=== PATIENT | male | born 1965 | race African-American/Black ===

== ENCOUNTER 2022-09-29 13:54 | Inpatient (IN) | payer OTHER ==
[2022-09-29 14:30] VITALS: BMI 20.6
[2022-09-29] MEDS ORDERED: BISMUTH SUBSALICYLATE 262 MG/15 ML BTL PO PRN (15:41)
[2022-09-29] MEDS ORDERED: IBUPROFEN 600 MG TABLET (FP) PO PRN (15:41)
[2022-09-29] MEDS ORDERED: NALOXONE HCL (KLOXXADO) 8 MG SPRAY NS PRN (15:41)
[2022-09-29] MEDS ORDERED: MAG HYDROX/AL HYDROX/SIMETH 30 ML UNIT-DOSE CUP PO PRN (15:41)
[2022-09-29] MEDS ORDERED: ACETAMINOPHEN 325 MG TABLET (FP) PO PRN ×2 (15:41)
[2022-09-29] MEDS ORDERED: DICYCLOMINE HCL 10 MG CAPSULE PO PRN (15:41)
[2022-09-29] MEDS ORDERED: MAGNESIUM HYDROX 2400MG/30ML ORAL SUSPENSION 30 ML CUP PO PRN (15:41)
[2022-09-29] MEDS ORDERED: IBUPROFEN 400 MG TABLET (FP) PO PRN (15:41)
[2022-09-29] MEDS ORDERED: ONDANSETRON *ODT* 4 MG TABLET SL PRN (15:41)
[2022-09-29] MEDS ORDERED: BENZOCAINE/MENTHOL (CHLORASEPTIC ) LOZENGE MM PRN (15:41)
[2022-09-29] MEDS ORDERED: LOPERAMIDE HCL 2 MG CAPSULE PO PRN (15:41)
[2022-09-29] MEDS ORDERED: METHOCARBAMOL 500 MG TABLET PO PRN (15:41)
[2022-09-29] MEDS ORDERED: POLYETHYLENE GLYCOL (HEALTHYLAX) 3350 17 GM PACKET PO PRN (15:41)
[2022-09-29] MEDS: diazePAM 5 MG TABLET PO SCH ×2 (17:22→22:19)
[2022-09-29] MEDS: NICOTINE 21 MG/24 HOURS TOPICAL PATCH TD SCH (17:24)
[2022-09-29] MEDS: PRENATAL VITAMINS W/ FOLIC ACID TABLET (FP) PO SCH (17:24)
[2022-09-29] MEDS: MELATONIN 5 MG TABLETS PO SCH (22:18)
[2022-09-29] MEDS: THIAMINE HCL 100 MG TABLET (FP) PO SCH (22:18)
[2022-09-30] MEDS: diazePAM 5 MG TABLET PO SCH ×4 (05:59→22:28)
[2022-09-30] MEDS ORDERED: methaDONE HCL 10 MG TABLET PO SCH (08:45)
[2022-09-30] MEDS: methaDONE 80 MG, methaDONE 20 MG PO SCH (09:17)
[2022-09-30] MEDS: NICOTINE 10 MG CARTRIDGE (INHALER) IH PRN (09:21)
[2022-09-30] MEDS: NICOTINE 21 MG/24 HOURS TOPICAL PATCH TD SCH (10:25)
[2022-09-30] MEDS: PRENATAL VITAMINS W/ FOLIC ACID TABLET (FP) PO SCH (10:25)
[2022-09-30 11:30] LABS: HEMATOCRIT 36.3 % (35.4-49); MCH 32.1 pg (25.7-33.7); MEAN CELL VOLUME 97.3 fl (80-96); MEAN PLT VOLUME 9.1 fl (7.5-11.1); PLATELET COUNT 205 10^3/uL (134-434); RBC 3.73 M/mm3 (4.00-5.60); RDW 13.2 % (11.9-15.9); WHITE BLOOD COUNT 2.5 K/mm3 (4.0-10.0)
[2022-09-30 11:44] LABS: CALCIUM 8.7 mg/dL (8.5-10.1)
[2022-09-30 11:45] LABS: ALBUMIN 2.8 g/dl (3.4-5.0); BLOOD UREA NITROGEN 15.1 mg/dL (7-18)
[2022-09-30 11:48] LABS: CREATININE 0.8 mg/dL (0.55-1.3)
[2022-09-30 11:49] LABS: TOT PROT 7.6 g/dl (6.4-8.2)
[2022-09-30 11:50] LABS: BILIRUBIN,TOTAL 0.2 mg/dL (0.2-1)
[2022-09-30] MEDS: THIAMINE HCL 100 MG TABLET (FP) PO SCH (22:28)
[2022-09-30] MEDS: MELATONIN 5 MG TABLETS PO SCH (22:28)
[2022-10-01] MEDS: diazePAM 5 MG TABLET PO SCH ×3 (05:13→22:08)
[2022-10-01] MEDS: methaDONE 80 MG, methaDONE 20 MG PO SCH (05:13)
[2022-10-01] MEDS: NICOTINE 21 MG/24 HOURS TOPICAL PATCH TD SCH (10:10)
[2022-10-01] MEDS: PRENATAL VITAMINS W/ FOLIC ACID TABLET (FP) PO SCH (10:10)
[2022-10-01] MEDS: THIAMINE HCL 100 MG TABLET (FP) PO SCH (22:07)
[2022-10-01] MEDS: MELATONIN 5 MG TABLETS PO SCH (22:08)
[2022-10-02] MEDS: methaDONE 80 MG, methaDONE 20 MG PO SCH (05:11)
[2022-10-02] MEDS: diazePAM 5 MG TABLET PO SCH ×2 (05:11→17:32)
[2022-10-02] MEDS: PRENATAL VITAMINS W/ FOLIC ACID TABLET (FP) PO SCH (10:35)
[2022-10-02] MEDS: NICOTINE 10 MG CARTRIDGE (INHALER) IH PRN ×2 (10:38→21:05)
[2022-10-02] MEDS: NICOTINE 21 MG/24 HOURS TOPICAL PATCH TD SCH (10:40)
[2022-10-02 21:51] VITALS: PULSE 60
[2022-10-02] MEDS: MELATONIN 5 MG TABLETS PO SCH (22:08)
[2022-10-02] MEDS: THIAMINE HCL 100 MG TABLET (FP) PO SCH (22:08)
[2022-10-03] MEDS: methaDONE 80 MG, methaDONE 20 MG PO SCH (05:06)
[2022-10-03] MEDS ORDERED: diazePAM 5 MG TABLET PO ONE (06:00)
[2022-10-03 09:29] VITALS: BP 100/63; RESP 16; TEMP 97.3
[2022-10-03] MEDS: PRENATAL VITAMINS W/ FOLIC ACID TABLET (FP) PO SCH (11:00)
[2022-10-03] MEDS: NICOTINE 21 MG/24 HOURS TOPICAL PATCH TD SCH (11:00)
[2022-10-04] MEDS: methaDONE 80 MG, methaDONE 20 MG PO SCH (06:28)
== END 2022-10-03 11:27 | disposition other institution (70) | DRG 773 ==
LOC: YASAS 13:54 → SUATTDRO 13:54 → Y3N 16:19
PROVIDERS: ADMIT Allergy & Immunology; ATTEND Family Medicine
PROC: HZ2ZZZZ Detoxification Services for Substance Abuse Treatment (ICD-10-PCS; principal; 2022-09-29)
DX: F13.230 Sedative, hypnotic or anxiolytic dependence with withdrawal, uncomplicated (principal); F11.20 Opioid dependence, uncomplicated; F14.20 Cocaine dependence, uncomplicated; F12.20 Cannabis dependence, uncomplicated; F17.210 Nicotine dependence, cigarettes, uncomplicated; F19.24 Other psychoactive substance dependence with psychoactive substance-induced mood disorder; F41.9 Anxiety disorder, unspecified; F32.A Depression, unspecified; Z28.310 Unvaccinated for COVID-19; Z28.9 Immunization not carried out for unspecified reason; Z88.8 Allergy status to other drugs, medicaments and biological substances
CPT/HCPCS: 36415; 80053; 85027; 86780; 87811; C9803-CS; U0003; U0005

== ENCOUNTER 2022-10-03 11:33 | Inpatient (IN) | payer OTHER ==
[2022-10-03] MEDS ORDERED: POLYETHYLENE GLYCOL (HEALTHYLAX) 3350 17 GM PACKET PO PRN (12:19)
[2022-10-03] MEDS ORDERED: P-EPHED 60MG/TRIPROLIDI 2.5MG TABLET PO PRN (12:19)
[2022-10-03] MEDS ORDERED: ACETAMINOPHEN 325 MG TABLET (FP) PO PRN (12:19)
[2022-10-03] MEDS ORDERED: hydrOXYzine PAMOATE 25 MG CAPSULE (FP) PO PRN (12:19)
[2022-10-03] MEDS ORDERED: IBUPROFEN 400 MG TABLET (FP) PO PRN (12:19)
[2022-10-03] MEDS ORDERED: MAGNESIUM HYDROX 2400MG/30ML ORAL SUSPENSION 30 ML CUP PO PRN (12:19)
[2022-10-03] MEDS ORDERED: LOPERAMIDE HCL 2 MG CAPSULE PO PRN (12:19)
[2022-10-03] MEDS ORDERED: guaiFENesin 200 MG/10 ML 10 ML UNIT-DOSE CUPS PO PRN (12:19)
[2022-10-03] MEDS ORDERED: BENZOCAINE/MENTHOL (CHLORASEPTIC ) LOZENGE MM PRN (12:19)
[2022-10-03] MEDS ORDERED: MAG HYDROX/AL HYDROX/SIMETH 30 ML UNIT-DOSE CUP PO PRN (12:19)
[2022-10-03] MEDS: MELATONIN 5 MG TABLETS PO SCH (21:28)
[2022-10-03] MEDS: THIAMINE HCL 100 MG TABLET (FP) PO SCH (21:28)
[2022-10-03] MEDS: NICOTINE 10 MG CARTRIDGE (INHALER) IH PRN (21:32)
[2022-10-04] MEDS ORDERED: methaDONE HCL 10 MG TABLET PO SCH (06:00)
[2022-10-04] MEDS: methaDONE 80 MG, methaDONE 20 MG PO SCH (06:30)
[2022-10-04] MEDS: PRENATAL VITAMINS W/ FOLIC ACID TABLET (FP) PO SCH (10:16)
[2022-10-04] MEDS: NICOTINE 7 MG/24 HOURS TOPICAL PATCH TD PRN (10:53)
[2022-10-04 11:08] LABS: INR 0.91 (0.83-1.09); PROTHROMBIN TIME (PATIENT) 10.4 SEC (9.7-13.0)
[2022-10-04] MEDS: NICOTINE 10 MG CARTRIDGE (INHALER) IH PRN (16:41)
[2022-10-04] MEDS: THIAMINE HCL 100 MG TABLET (FP) PO SCH (21:51)
[2022-10-04] MEDS: MELATONIN 5 MG TABLETS PO SCH (21:51)
[2022-10-05] MEDS: methaDONE 80 MG, methaDONE 20 MG PO SCH (06:02)
[2022-10-05] MEDS: NICOTINE 10 MG CARTRIDGE (INHALER) IH PRN ×2 (07:25→21:15)
[2022-10-05] MEDS: PRENATAL VITAMINS W/ FOLIC ACID TABLET (FP) PO SCH (09:52)
[2022-10-05] MEDS: NICOTINE 7 MG/24 HOURS TOPICAL PATCH TD PRN (09:53)
[2022-10-05] MEDS: MELATONIN 5 MG TABLETS PO SCH (21:15)
[2022-10-05] MEDS: THIAMINE HCL 100 MG TABLET (FP) PO SCH (21:15)
[2022-10-06] MEDS: methaDONE 80 MG, methaDONE 20 MG PO SCH (06:14)
[2022-10-06] MEDS: NICOTINE 10 MG CARTRIDGE (INHALER) IH PRN (06:25)
[2022-10-06] MEDS ORDERED: NICOTINE 7 MG/24 HOURS TOPICAL PATCH TD PRN (08:53)
[2022-10-06] MEDS ORDERED: NICOTINE 14 MG/24 HOURS TOPICAL PATCH TD PRN (09:02)
[2022-10-06] MEDS: PRENATAL VITAMINS W/ FOLIC ACID TABLET (FP) PO SCH (10:19)
[2022-10-06] MEDS ORDERED: LACTULOSE 20 GM/30 ML UDC (FOR ORAL USE ONLY) PO PRN (16:46)
[2022-10-06] MEDS: THIAMINE HCL 100 MG TABLET (FP) PO SCH (21:53)
[2022-10-06] MEDS: MELATONIN 5 MG TABLETS PO SCH (21:53)
[2022-10-07] MEDS: methaDONE 80 MG, methaDONE 20 MG PO SCH (06:21)
[2022-10-07] MEDS: NICOTINE 10 MG CARTRIDGE (INHALER) IH PRN ×2 (06:22→22:31)
[2022-10-07] MEDS: TAMSULOSIN HCL 0.4 MG CAP PO SCH (09:11)
[2022-10-07] MEDS: PRENATAL VITAMINS W/ FOLIC ACID TABLET (FP) PO SCH (09:11)
[2022-10-07] MEDS: NICOTINE 21 MG/24 HOURS TOPICAL PATCH TD PRN (09:12)
[2022-10-07] MEDS: LACTULOSE 20 GM/30 ML UDC (FOR ORAL USE ONLY) PO SCH ×2 (13:32→21:06)
[2022-10-07] MEDS: THIAMINE HCL 100 MG TABLET (FP) PO SCH (21:06)
[2022-10-07] MEDS: MELATONIN 5 MG TABLETS PO SCH (21:06)
[2022-10-08] MEDS: methaDONE 80 MG, methaDONE 20 MG PO SCH (06:09)
[2022-10-08] MEDS: LACTULOSE 20 GM/30 ML UDC (FOR ORAL USE ONLY) PO SCH ×3 (06:09→21:18)
[2022-10-08] MEDS: NICOTINE 10 MG CARTRIDGE (INHALER) IH PRN (06:22)
[2022-10-08] MEDS: PRENATAL VITAMINS W/ FOLIC ACID TABLET (FP) PO SCH (09:47)
[2022-10-08] MEDS: NICOTINE 21 MG/24 HOURS TOPICAL PATCH TD PRN (09:47)
[2022-10-08] MEDS: TAMSULOSIN HCL 0.4 MG CAP PO SCH (09:47)
[2022-10-08] MEDS: MELATONIN 5 MG TABLETS PO SCH (21:18)
[2022-10-08] MEDS: THIAMINE HCL 100 MG TABLET (FP) PO SCH (21:18)
[2022-10-09] MEDS: NICOTINE 10 MG CARTRIDGE (INHALER) IH PRN (05:59)
[2022-10-09] MEDS: LACTULOSE 20 GM/30 ML UDC (FOR ORAL USE ONLY) PO SCH ×3 (06:00→21:05)
[2022-10-09] MEDS: methaDONE 80 MG, methaDONE 20 MG PO SCH (06:04)
[2022-10-09] MEDS ORDERED: LACTULOSE 20 GM/30 ML UDC (FOR ORAL USE ONLY) PO SCH (09:09)
[2022-10-09] MEDS: PRENATAL VITAMINS W/ FOLIC ACID TABLET (FP) PO SCH (09:29)
[2022-10-09] MEDS: TAMSULOSIN HCL 0.4 MG CAP PO SCH (09:29)
[2022-10-09] MEDS: NICOTINE 21 MG/24 HOURS TOPICAL PATCH TD PRN (09:56)
[2022-10-09] MEDS: THIAMINE HCL 100 MG TABLET (FP) PO SCH (21:05)
[2022-10-09] MEDS: MELATONIN 5 MG TABLETS PO SCH (21:05)
[2022-10-10] MEDS: NICOTINE 10 MG CARTRIDGE (INHALER) IH PRN ×3 (05:59→21:35)
[2022-10-10] MEDS: methaDONE 80 MG, methaDONE 20 MG PO SCH (05:59)
[2022-10-10] MEDS: TAMSULOSIN HCL 0.4 MG CAP PO SCH (09:21)
[2022-10-10] MEDS: LACTULOSE 20 GM/30 ML UDC (FOR ORAL USE ONLY) PO SCH ×3 (09:21→21:36)
[2022-10-10] MEDS: PRENATAL VITAMINS W/ FOLIC ACID TABLET (FP) PO SCH (09:23)
[2022-10-10] MEDS: THIAMINE HCL 100 MG TABLET (FP) PO SCH (21:36)
[2022-10-10] MEDS: MELATONIN 5 MG TABLETS PO SCH (21:36)
[2022-10-11] MEDS: methaDONE 80 MG, methaDONE 20 MG PO SCH (06:12)
[2022-10-11] MEDS: NICOTINE 10 MG CARTRIDGE (INHALER) IH PRN ×4 (09:09→22:12)
[2022-10-11] MEDS: TAMSULOSIN HCL 0.4 MG CAP PO SCH (09:09)
[2022-10-11] MEDS: LACTULOSE 20 GM/30 ML UDC (FOR ORAL USE ONLY) PO SCH ×3 (09:10→22:11)
[2022-10-11] MEDS: PRENATAL VITAMINS W/ FOLIC ACID TABLET (FP) PO SCH (09:11)
[2022-10-11] MEDS: THIAMINE HCL 100 MG TABLET (FP) PO SCH (22:10)
[2022-10-11] MEDS: MELATONIN 5 MG TABLETS PO SCH (22:10)
[2022-10-12] MEDS: methaDONE 80 MG, methaDONE 20 MG PO SCH (06:14)
[2022-10-12] MEDS: TAMSULOSIN HCL 0.4 MG CAP PO SCH (08:56)
[2022-10-12] MEDS: LACTULOSE 20 GM/30 ML UDC (FOR ORAL USE ONLY) PO SCH ×3 (08:56→21:25)
[2022-10-12] MEDS: NICOTINE 10 MG CARTRIDGE (INHALER) IH PRN ×3 (09:33→21:25)
[2022-10-12] MEDS: PRENATAL VITAMINS W/ FOLIC ACID TABLET (FP) PO SCH (09:33)
[2022-10-12] MEDS: THIAMINE HCL 100 MG TABLET (FP) PO SCH (21:25)
[2022-10-12] MEDS: MELATONIN 5 MG TABLETS PO SCH (21:25)
[2022-10-13] MEDS: methaDONE 80 MG, methaDONE 20 MG PO SCH (06:21)
[2022-10-13] MEDS: TAMSULOSIN HCL 0.4 MG CAP PO SCH (09:30)
[2022-10-13] MEDS: LACTULOSE 20 GM/30 ML UDC (FOR ORAL USE ONLY) PO SCH ×3 (09:46→21:15)
[2022-10-13] MEDS: PRENATAL VITAMINS W/ FOLIC ACID TABLET (FP) PO SCH (09:47)
[2022-10-13] MEDS: NICOTINE 10 MG CARTRIDGE (INHALER) IH PRN ×2 (14:18→21:16)
[2022-10-13] MEDS: THIAMINE HCL 100 MG TABLET (FP) PO SCH (21:15)
[2022-10-13] MEDS: MELATONIN 5 MG TABLETS PO SCH (21:15)
[2022-10-14] MEDS: methaDONE 80 MG, methaDONE 20 MG PO SCH (06:49)
[2022-10-14] MEDS: TAMSULOSIN HCL 0.4 MG CAP PO SCH (09:30)
[2022-10-14] MEDS: LACTULOSE 20 GM/30 ML UDC (FOR ORAL USE ONLY) PO SCH ×3 (09:30→21:00)
[2022-10-14] MEDS: PRENATAL VITAMINS W/ FOLIC ACID TABLET (FP) PO SCH (09:30)
[2022-10-14] MEDS: NICOTINE 10 MG CARTRIDGE (INHALER) IH PRN ×2 (10:14→20:57)
[2022-10-14] MEDS: THIAMINE HCL 100 MG TABLET (FP) PO SCH (21:00)
[2022-10-14] MEDS: MELATONIN 5 MG TABLETS PO SCH (21:00)
[2022-10-15] MEDS: methaDONE 80 MG, methaDONE 20 MG PO SCH (06:03)
[2022-10-15] MEDS: TAMSULOSIN HCL 0.4 MG CAP PO SCH (09:30)
[2022-10-15] MEDS: PRENATAL VITAMINS W/ FOLIC ACID TABLET (FP) PO SCH (09:43)
[2022-10-15] MEDS: LACTULOSE 20 GM/30 ML UDC (FOR ORAL USE ONLY) PO SCH ×3 (09:43→21:02)
[2022-10-15] MEDS: NICOTINE 10 MG CARTRIDGE (INHALER) IH PRN ×3 (09:43→21:03)
[2022-10-15] MEDS: MELATONIN 5 MG TABLETS PO SCH (21:02)
[2022-10-15] MEDS: THIAMINE HCL 100 MG TABLET (FP) PO SCH (21:02)
[2022-10-16] MEDS: methaDONE 80 MG, methaDONE 20 MG PO SCH (05:53)
[2022-10-16] MEDS: PRENATAL VITAMINS W/ FOLIC ACID TABLET (FP) PO SCH (09:38)
[2022-10-16] MEDS: TAMSULOSIN HCL 0.4 MG CAP PO SCH (09:38)
[2022-10-16] MEDS: LACTULOSE 20 GM/30 ML UDC (FOR ORAL USE ONLY) PO SCH ×3 (09:39→21:07)
[2022-10-16] MEDS: NICOTINE 10 MG CARTRIDGE (INHALER) IH PRN ×2 (10:16→18:38)
[2022-10-16] MEDS: THIAMINE HCL 100 MG TABLET (FP) PO SCH (21:07)
[2022-10-16] MEDS: MELATONIN 5 MG TABLETS PO SCH (21:07)
[2022-10-17] MEDS: methaDONE 80 MG, methaDONE 20 MG PO SCH (05:36)
[2022-10-17] MEDS: PRENATAL VITAMINS W/ FOLIC ACID TABLET (FP) PO SCH (09:40)
[2022-10-17] MEDS: TAMSULOSIN HCL 0.4 MG CAP PO SCH (09:41)
[2022-10-17] MEDS: LACTULOSE 20 GM/30 ML UDC (FOR ORAL USE ONLY) PO SCH ×3 (09:41→21:19)
[2022-10-17] MEDS: NICOTINE 10 MG CARTRIDGE (INHALER) IH PRN ×2 (18:16→21:19)
[2022-10-17] MEDS: MELATONIN 5 MG TABLETS PO SCH (21:18)
[2022-10-17] MEDS: THIAMINE HCL 100 MG TABLET (FP) PO SCH (21:18)
[2022-10-18] MEDS: methaDONE 80 MG, methaDONE 20 MG PO SCH (05:55)
[2022-10-18] MEDS: LACTULOSE 20 GM/30 ML UDC (FOR ORAL USE ONLY) PO SCH ×3 (09:45→21:11)
[2022-10-18] MEDS: TAMSULOSIN HCL 0.4 MG CAP PO SCH (09:45)
[2022-10-18] MEDS: PRENATAL VITAMINS W/ FOLIC ACID TABLET (FP) PO SCH (09:45)
[2022-10-18] MEDS: MELATONIN 5 MG TABLETS PO SCH (21:11)
[2022-10-18] MEDS: THIAMINE HCL 100 MG TABLET (FP) PO SCH (21:11)
[2022-10-19] MEDS: methaDONE 80 MG, methaDONE 20 MG PO SCH (06:03)
[2022-10-19] MEDS: PRENATAL VITAMINS W/ FOLIC ACID TABLET (FP) PO SCH (09:37)
[2022-10-19] MEDS: TAMSULOSIN HCL 0.4 MG CAP PO SCH (09:37)
[2022-10-19] MEDS: LACTULOSE 20 GM/30 ML UDC (FOR ORAL USE ONLY) PO SCH ×3 (09:38→21:31)
[2022-10-19] MEDS: MELATONIN 5 MG TABLETS PO SCH (21:31)
[2022-10-19] MEDS: THIAMINE HCL 100 MG TABLET (FP) PO SCH (21:31)
[2022-10-20] MEDS: methaDONE 80 MG, methaDONE 20 MG PO SCH (05:51)
[2022-10-20] MEDS: TAMSULOSIN HCL 0.4 MG CAP PO SCH (09:59)
[2022-10-20] MEDS: PRENATAL VITAMINS W/ FOLIC ACID TABLET (FP) PO SCH (09:59)
[2022-10-20] MEDS: LACTULOSE 20 GM/30 ML UDC (FOR ORAL USE ONLY) PO SCH ×3 (09:59→21:22)
[2022-10-20] MEDS: MELATONIN 5 MG TABLETS PO SCH (21:21)
[2022-10-20] MEDS: THIAMINE HCL 100 MG TABLET (FP) PO SCH (21:21)
[2022-10-21] MEDS: methaDONE 80 MG, methaDONE 20 MG PO SCH (06:13)
[2022-10-21] MEDS: TAMSULOSIN HCL 0.4 MG CAP PO SCH (09:14)
[2022-10-21] MEDS: LACTULOSE 20 GM/30 ML UDC (FOR ORAL USE ONLY) PO SCH ×3 (09:14→21:46)
[2022-10-21] MEDS: PRENATAL VITAMINS W/ FOLIC ACID TABLET (FP) PO SCH (09:14)
[2022-10-21] MEDS: MELATONIN 5 MG TABLETS PO SCH (21:45)
[2022-10-21] MEDS: THIAMINE HCL 100 MG TABLET (FP) PO SCH (21:45)
[2022-10-21] MEDS: NICOTINE 10 MG CARTRIDGE (INHALER) IH PRN (21:46)
[2022-10-22] MEDS: methaDONE 80 MG, methaDONE 20 MG PO SCH (06:28)
[2022-10-22] MEDS: PRENATAL VITAMINS W/ FOLIC ACID TABLET (FP) PO SCH (09:56)
[2022-10-22] MEDS: LACTULOSE 20 GM/30 ML UDC (FOR ORAL USE ONLY) PO SCH ×3 (09:56→21:11)
[2022-10-22] MEDS: TAMSULOSIN HCL 0.4 MG CAP PO SCH (09:56)
[2022-10-22] MEDS: NICOTINE 21 MG/24 HOURS TOPICAL PATCH TD PRN (14:15)
[2022-10-22] MEDS: MELATONIN 5 MG TABLETS PO SCH (21:11)
[2022-10-22] MEDS: THIAMINE HCL 100 MG TABLET (FP) PO SCH (21:11)
[2022-10-23] MEDS: methaDONE 80 MG, methaDONE 20 MG PO SCH (06:03)
[2022-10-23] MEDS: LACTULOSE 20 GM/30 ML UDC (FOR ORAL USE ONLY) PO SCH ×3 (10:00→21:59)
[2022-10-23] MEDS: TAMSULOSIN HCL 0.4 MG CAP PO SCH (10:00)
[2022-10-23] MEDS: PRENATAL VITAMINS W/ FOLIC ACID TABLET (FP) PO SCH (10:30)
[2022-10-23] MEDS: MELATONIN 5 MG TABLETS PO SCH (21:59)
[2022-10-23] MEDS: THIAMINE HCL 100 MG TABLET (FP) PO SCH (22:00)
[2022-10-24] MEDS: methaDONE 80 MG, methaDONE 20 MG PO SCH (05:51)
[2022-10-24] MEDS: PRENATAL VITAMINS W/ FOLIC ACID TABLET (FP) PO SCH (09:31)
[2022-10-24] MEDS: LACTULOSE 20 GM/30 ML UDC (FOR ORAL USE ONLY) PO SCH ×3 (09:31→21:09)
[2022-10-24] MEDS: TAMSULOSIN HCL 0.4 MG CAP PO SCH (09:31)
[2022-10-24] MEDS: MELATONIN 5 MG TABLETS PO SCH (21:09)
[2022-10-24] MEDS: NICOTINE 10 MG CARTRIDGE (INHALER) IH PRN (21:09)
[2022-10-24] MEDS: THIAMINE HCL 100 MG TABLET (FP) PO SCH (21:09)
[2022-10-25] MEDS: methaDONE 80 MG, methaDONE 20 MG PO SCH (05:46)
[2022-10-25] MEDS: TAMSULOSIN HCL 0.4 MG CAP PO SCH (09:11)
[2022-10-25] MEDS: LACTULOSE 20 GM/30 ML UDC (FOR ORAL USE ONLY) PO SCH ×3 (10:29→21:02)
[2022-10-25] MEDS: PRENATAL VITAMINS W/ FOLIC ACID TABLET (FP) PO SCH (10:29)
[2022-10-25] MEDS: NICOTINE 21 MG/24 HOURS TOPICAL PATCH TD PRN (10:30)
[2022-10-25] MEDS ORDERED: TOLNAFTATE 1% CREAM 15 GM TUBE TP PRN (11:54)
[2022-10-25] MEDS: NICOTINE 10 MG CARTRIDGE (INHALER) IH PRN (18:54)
[2022-10-25] MEDS: THIAMINE HCL 100 MG TABLET (FP) PO SCH (21:02)
[2022-10-25] MEDS: MELATONIN 5 MG TABLETS PO SCH (21:02)
[2022-10-26] MEDS: methaDONE 80 MG, methaDONE 20 MG PO SCH (05:47)
[2022-10-26] MEDS: TAMSULOSIN HCL 0.4 MG CAP PO SCH (09:14)
[2022-10-26] MEDS: PRENATAL VITAMINS W/ FOLIC ACID TABLET (FP) PO SCH (09:14)
[2022-10-26] MEDS: LACTULOSE 20 GM/30 ML UDC (FOR ORAL USE ONLY) PO SCH ×3 (09:14→21:03)
[2022-10-26] MEDS: MELATONIN 5 MG TABLETS PO SCH (21:02)
[2022-10-26] MEDS: THIAMINE HCL 100 MG TABLET (FP) PO SCH (21:02)
[2022-10-27] MEDS: methaDONE 80 MG, methaDONE 20 MG PO SCH (06:12)
[2022-10-27] MEDS: TAMSULOSIN HCL 0.4 MG CAP PO SCH (09:31)
[2022-10-27] MEDS: NICOTINE 10 MG CARTRIDGE (INHALER) IH PRN ×2 (09:32→19:00)
[2022-10-27] MEDS: LACTULOSE 20 GM/30 ML UDC (FOR ORAL USE ONLY) PO SCH ×4 (09:32→21:34)
[2022-10-27] MEDS: PRENATAL VITAMINS W/ FOLIC ACID TABLET (FP) PO SCH (09:32)
[2022-10-27] MEDS: MELATONIN 5 MG TABLETS PO SCH (21:34)
[2022-10-27] MEDS: THIAMINE HCL 100 MG TABLET (FP) PO SCH (21:34)
[2022-10-28] MEDS: methaDONE 80 MG, methaDONE 20 MG PO SCH (05:48)
[2022-10-28] MEDS: LACTULOSE 20 GM/30 ML UDC (FOR ORAL USE ONLY) PO SCH ×3 (10:16→21:40)
[2022-10-28] MEDS: PRENATAL VITAMINS W/ FOLIC ACID TABLET (FP) PO SCH (10:16)
[2022-10-28] MEDS: TAMSULOSIN HCL 0.4 MG CAP PO SCH (10:16)
[2022-10-28] MEDS: NICOTINE 10 MG CARTRIDGE (INHALER) IH PRN (19:05)
[2022-10-28] MEDS: MELATONIN 5 MG TABLETS PO SCH (21:40)
[2022-10-28] MEDS: THIAMINE HCL 100 MG TABLET (FP) PO SCH (21:40)
[2022-10-29] MEDS: methaDONE 80 MG, methaDONE 20 MG PO SCH (05:43)
[2022-10-29] MEDS: PRENATAL VITAMINS W/ FOLIC ACID TABLET (FP) PO SCH (09:35)
[2022-10-29] MEDS: TAMSULOSIN HCL 0.4 MG CAP PO SCH (09:35)
[2022-10-29] MEDS: LACTULOSE 20 GM/30 ML UDC (FOR ORAL USE ONLY) PO SCH ×3 (09:35→21:33)
[2022-10-29] MEDS: MELATONIN 5 MG TABLETS PO SCH (21:33)
[2022-10-29] MEDS: THIAMINE HCL 100 MG TABLET (FP) PO SCH (21:33)
[2022-10-30] MEDS: methaDONE 80 MG, methaDONE 20 MG PO SCH (05:45)
[2022-10-30] MEDS: TAMSULOSIN HCL 0.4 MG CAP PO SCH (09:02)
[2022-10-30] MEDS: PRENATAL VITAMINS W/ FOLIC ACID TABLET (FP) PO SCH (09:02)
[2022-10-30] MEDS: LACTULOSE 20 GM/30 ML UDC (FOR ORAL USE ONLY) PO SCH ×3 (09:02→21:03)
[2022-10-30] MEDS: NICOTINE 21 MG/24 HOURS TOPICAL PATCH TD PRN (10:57)
[2022-10-30] MEDS: THIAMINE HCL 100 MG TABLET (FP) PO SCH (21:02)
[2022-10-30] MEDS: MELATONIN 5 MG TABLETS PO SCH (21:02)
[2022-10-31] MEDS ORDERED: methaDONE 80 MG, methaDONE 20 MG PO SCH (06:00)
[2022-10-31 06:32] VITALS: BP 123/75; PULSE 73; RESP 18; TEMP 97.8
== END 2022-10-31 09:55 | disposition home or self-care (01) | DRG 772 ==
LOC: YASAS 11:33 → Y3W 11:37
PROVIDERS: ADMIT Allergy & Immunology; ATTEND Allergy & Immunology
PROC: HZ42ZZZ Group Counseling for Substance Abuse Treatment, Cognitive-Behavioral (ICD-10-PCS; principal; 2022-10-03)
DX: F11.20 Opioid dependence, uncomplicated (principal); F13.20 Sedative, hypnotic or anxiolytic dependence, uncomplicated; F14.20 Cocaine dependence, uncomplicated; F12.20 Cannabis dependence, uncomplicated; F17.210 Nicotine dependence, cigarettes, uncomplicated; F19.24 Other psychoactive substance dependence with psychoactive substance-induced mood disorder; F41.8 Other specified anxiety disorders; E72.20 Disorder of urea cycle metabolism, unspecified; I10 Essential (primary) hypertension; R74.8 Abnormal levels of other serum enzymes; Z88.8 Allergy status to other drugs, medicaments and biological substances
CPT/HCPCS: 36415; 82140; 85610; 86803; 87522; 93005; 93010

== ENCOUNTER 2023-06-03 14:09 | Inpatient (IN) | payer OTHER ==
[2023-06-03] MEDS ORDERED: VANCOMYCIN HCL 1,500 MG in DEXTROSE 5%-WATER - 500 ML IVPB ONE ×2 (15:08→18:24)
[2023-06-03] MEDS ORDERED: PIPERACILLIN/TAZOB 4.5 GM 4.5 GM in DEXTROSE 5%-WATER 100 ML IVPB ONE ×2 (15:08→18:24)
[2023-06-03 16:11] LABS: BASO % 0.6 % (0-2.0); EOS % 4.7 % (0-4.5); HEMATOCRIT 33.2 % (35.4-49); HEMOGLOBIN 11.4 GM/dL (11.7-16.9); LYMPH % 46.1 % (8-40); MCH 32.5 pg (25.7-33.7); MCHC 34.5 g/dl (32.0-35.9); MEAN CELL VOLUME 94.4 fl (80-96); MEAN PLT VOLUME 7.7 fl (7.5-11.1); MONO % 21.4 % (3.8-10.2); NEUT % 27.2 % (42.8-82.8); PLATELET COUNT 225 10^3/uL (134-434); RBC 3.52 M/mm3 (4.00-5.60); RDW 13.6 % (11.9-15.9); WHITE BLOOD COUNT 2.3 K/mm3 (4.0-10.0)
[2023-06-03 16:21] LABS: POTASSIUM 3.7 mmol/L (3.5-5.1)
[2023-06-03 16:23] LABS: CALCIUM 8.4 mg/dL (8.5-10.1)
[2023-06-03 16:24] LABS: ALBUMIN 2.9 g/dl (3.4-5.0)
[2023-06-03 16:27] LABS: CREATININE 0.8 mg/dL (0.55-1.3)
[2023-06-03 16:28] LABS: TOT PROT 7.7 g/dl (6.4-8.2)
[2023-06-03 16:29] LABS: BILIRUBIN,TOTAL 0.2 mg/dL (0.2-1)
[2023-06-03 16:57] LABS: ERYTHROCYTE SEDIMENTATION RATE 51 mm/hr (0-20)
[2023-06-03 17:30] LABS: ANISOCYTOSIS 1+; MACROCYTOSIS 0
[2023-06-03] MEDS ORDERED: PIPERACILLIN/TAZOB 4.5 GM 4.5 GM/100 ML BAG IVPB ONE (18:26)
[2023-06-04] MEDS ORDERED: LORazepam 1 MG TABLET PO PRN (00:17)
[2023-06-04] MEDS ORDERED: FOLIC ACID INJECTION - 1 MG, THIAMINE HCL 100 MG, MULTIVIT INJECTION ADULT 10 ML in SOD... IVPB ONE (01:30)
[2023-06-04] MEDS: LORazepam 1 MG TABLET PO SCH ×4 (05:26→23:58)
[2023-06-04 07:29] LABS: HEMOGLOBIN 11.6 GM/dL (11.7-16.9); MCH 32.3 pg (25.7-33.7); MEAN CELL VOLUME 94.9 fl (80-96); MEAN PLT VOLUME 8.7 fl (7.5-11.1); PLATELET COUNT 185 10^3/uL (134-434); RBC 3.58 M/mm3 (4.00-5.60); WHITE BLOOD COUNT 3.3 K/mm3 (4.0-10.0)
[2023-06-04 07:42] LABS: CALCIUM 8.5 mg/dL (8.5-10.1)
[2023-06-04 07:43] LABS: ALBUMIN 2.9 g/dl (3.4-5.0); BLOOD UREA NITROGEN 9.1 mg/dL (7-18); MAGNESIUM 1.7 mg/dL (1.8-2.4)
[2023-06-04 07:46] LABS: CREATININE 0.8 mg/dL (0.55-1.3); PHOSPHOROUS 3.3 mg/dL (2.5-4.9)
[2023-06-04 07:47] LABS: BILIRUBIN,TOTAL 0.2 mg/dL (0.2-1); TOT PROT 7.8 g/dl (6.4-8.2)
[2023-06-04] MEDS ORDERED: methaDONE HCL 10 MG TABLET (FOR DETOX USE ONLY) PO ONE (08:45)
[2023-06-04] MEDS ORDERED: FOLIC ACID 1 MG TABLET (FP) ONE (08:55)
[2023-06-04] MEDS ORDERED: THIAMINE HCL 100 MG TABLET (FP) ONE (08:55)
[2023-06-04] MEDS ORDERED: NICOTINE 14 MG/24 HOURS TOPICAL PATCH TD ONE (08:55)
[2023-06-04] MEDS ORDERED: PIPERACILLIN/TAZOB 3.375 GM 3.375 GM in DEXTROSE 5%-WATER - 50 ML IVPB SCH ×2 (09:00→10:00)
[2023-06-04] MEDS: FOLIC ACID 1 MG TABLET (FP) PO SCH (09:02)
[2023-06-04] MEDS: THIAMINE HCL 100 MG TABLET (FP) PO SCH (09:02)
[2023-06-04] MEDS: NICOTINE 14 MG/24 HOURS TOPICAL PATCH TD SCH (09:02)
[2023-06-04] MEDS ORDERED: VANCOMYCIN 1,000 MG in DEXTROSE 5%-WATER - 250 ML IVPB SCH (10:00)
[2023-06-04] MEDS ORDERED: PIPERACILLIN/TAZOB 3.375 GM 3.375 GM/50 ML BAG IVPB ONE (10:20)
[2023-06-04] MEDS: PIPERACILLIN/TAZOB 3.375 GM 3.375 GM in DEXTROSE 5%-WATER - 50 ML IVPB SCH ×2 (10:45→19:34)
[2023-06-04] MEDS ORDERED: methaDONE 80 MG, methaDONE 20 MG PO ONE (10:50)
[2023-06-04] MEDS ORDERED: methaDONE HCL 40 MG DISPERSABLE TABLET ONE (11:18)
[2023-06-04] MEDS ORDERED: LORazepam 1 MG TABLET ONE (11:19)
[2023-06-04] MEDS ORDERED: methaDONE HCL 10 MG TABLET ONE (11:19)
[2023-06-04] MEDS ORDERED: VANCOMYCIN/WATER 1250 MG 1,250 MG/250 ML BAG IVPB ONE ×2 (17:02→17:20)
[2023-06-04 23:07] VITALS: BMI 23.4
[2023-06-05] MEDS: PIPERACILLIN/TAZOB 3.375 GM 3.375 GM in DEXTROSE 5%-WATER - 50 ML IVPB SCH ×3 (01:03→17:59)
[2023-06-05] MEDS: LORazepam 1 MG TABLET PO SCH ×4 (05:28→23:26)
[2023-06-05] MEDS: methaDONE 80 MG, methaDONE 20 MG PO SCH (09:14)
[2023-06-05] MEDS: NICOTINE 14 MG/24 HOURS TOPICAL PATCH TD SCH (09:15)
[2023-06-05] MEDS: FOLIC ACID 1 MG TABLET (FP) PO SCH (09:15)
[2023-06-05] MEDS: THIAMINE HCL 100 MG TABLET (FP) PO SCH (09:15)
[2023-06-05 09:47] LABS: BASO % 0.6 % (0-2.0); EOS % 5.6 % (0-4.5); HEMATOCRIT 36.2 % (35.4-49); HEMOGLOBIN 11.9 GM/dL (11.7-16.9); LYMPH % 54.2 % (8-40); MCH 31.7 pg (25.7-33.7); MCHC 32.9 g/dl (32.0-35.9); MEAN CELL VOLUME 96.3 fl (80-96); MEAN PLT VOLUME 8.2 fl (7.5-11.1); MONO % 12.5 % (3.8-10.2); NEUT % 27.1 % (42.8-82.8); PLATELET COUNT 236 10^3/uL (134-434); RBC 3.76 M/mm3 (4.00-5.60); RDW 13.6 % (11.9-15.9); WHITE BLOOD COUNT 3.6 K/mm3 (4.0-10.0)
[2023-06-05] MEDS ORDERED: methaDONE HCL 10 MG TABLET (FOR DETOX USE ONLY) PO SCH (10:00)
[2023-06-05 10:11] LABS: POTASSIUM 4.4 mmol/L (3.5-5.1)
[2023-06-05 10:14] LABS: BLOOD UREA NITROGEN 9.4 mg/dL (7-18)
[2023-06-05 10:17] LABS: CALCIUM 8.6 mg/dL (8.5-10.1); CREATININE 0.8 mg/dL (0.55-1.3); PHOSPHOROUS 4.2 mg/dL (2.5-4.9)
[2023-06-06] MEDS ORDERED: LORazepam 0.5 MG TABLET PO PRN
[2023-06-06] MEDS: PIPERACILLIN/TAZOB 3.375 GM 3.375 GM in DEXTROSE 5%-WATER - 50 ML IVPB SCH ×3 (02:08→17:17)
[2023-06-06] MEDS: LORazepam 0.5 MG TABLET PO SCH ×4 (05:05→22:09)
[2023-06-06] MEDS: methaDONE 80 MG, methaDONE 20 MG PO SCH (06:27)
[2023-06-06] MEDS: NICOTINE 14 MG/24 HOURS TOPICAL PATCH TD SCH (09:15)
[2023-06-06] MEDS: FOLIC ACID 1 MG TABLET (FP) PO SCH (09:15)
[2023-06-06] MEDS: THIAMINE HCL 100 MG TABLET (FP) PO SCH (09:15)
[2023-06-06 09:26] LABS: BASO % 0.7 % (0-2.0); EOS % 6.6 % (0-4.5); HEMATOCRIT 37.3 % (35.4-49); HEMOGLOBIN 12.6 GM/dL (11.7-16.9); LYMPH % 48.1 % (8-40); MCH 31.9 pg (25.7-33.7); MCHC 33.7 g/dl (32.0-35.9); MEAN CELL VOLUME 94.6 fl (80-96); MEAN PLT VOLUME 8.1 fl (7.5-11.1); MONO % 10.7 % (3.8-10.2); NEUT % 33.9 % (42.8-82.8); PLATELET COUNT 289 10^3/uL (134-434); RBC 3.95 M/mm3 (4.00-5.60); RDW 13.3 % (11.9-15.9); WHITE BLOOD COUNT 4.2 K/mm3 (4.0-10.0)
[2023-06-06 09:46] LABS: POTASSIUM 4.2 mmol/L (3.5-5.1)
[2023-06-06 09:48] LABS: BLOOD UREA NITROGEN 12.8 mg/dL (7-18)
[2023-06-06 09:49] LABS: ALBUMIN 3.2 g/dl (3.4-5.0); CALCIUM 9.1 mg/dL (8.5-10.1); MAGNESIUM 2.1 mg/dL (1.8-2.4)
[2023-06-06 09:51] LABS: CREATININE 0.9 mg/dL (0.55-1.3)
[2023-06-06 09:54] LABS: BILIRUBIN,TOTAL 0.3 mg/dL (0.2-1)
[2023-06-06 09:55] LABS: TOT PROT 8.6 g/dl (6.4-8.2)
[2023-06-07] MEDS: PIPERACILLIN/TAZOB 3.375 GM 3.375 GM in DEXTROSE 5%-WATER - 50 ML IVPB SCH ×3 (02:11→17:53)
[2023-06-07] MEDS ORDERED: LORazepam 0.5 MG TABLET PO ONE (05:00)
[2023-06-07] MEDS: methaDONE 80 MG, methaDONE 20 MG PO SCH (05:15)
[2023-06-07 09:33] LABS: BASO % 0.6 % (0-2.0); EOS % 6.3 % (0-4.5); HEMATOCRIT 38.7 % (35.4-49); HEMOGLOBIN 13.2 GM/dL (11.7-16.9); MCH 32.6 pg (25.7-33.7); MCHC 34.1 g/dl (32.0-35.9); MEAN CELL VOLUME 95.5 fl (80-96); MEAN PLT VOLUME 7.9 fl (7.5-11.1); MONO % 9.8 % (3.8-10.2); NEUT % 32.3 % (42.8-82.8); PLATELET COUNT 307 10^3/uL (134-434); RBC 4.06 M/mm3 (4.00-5.60); RDW 13.3 % (11.9-15.9)
[2023-06-07 09:49] LABS: POTASSIUM 4.9 mmol/L (3.5-5.1)
[2023-06-07 09:51] LABS: ALBUMIN 3.3 g/dl (3.4-5.0); BLOOD UREA NITROGEN 11.2 mg/dL (7-18); CALCIUM 9.1 mg/dL (8.5-10.1); MAGNESIUM 2.1 mg/dL (1.8-2.4)
[2023-06-07] MEDS: THIAMINE HCL 100 MG TABLET (FP) PO SCH (09:55)
[2023-06-07] MEDS: FOLIC ACID 1 MG TABLET (FP) PO SCH (09:55)
[2023-06-07] MEDS: NICOTINE 14 MG/24 HOURS TOPICAL PATCH TD SCH (09:55)
[2023-06-07 09:56] LABS: BILIRUBIN,TOTAL 0.3 mg/dL (0.2-1)
[2023-06-08] MEDS: PIPERACILLIN/TAZOB 3.375 GM 3.375 GM in DEXTROSE 5%-WATER - 50 ML IVPB SCH ×3 (01:58→17:57)
[2023-06-08] MEDS: methaDONE 80 MG, methaDONE 20 MG PO SCH (05:15)
[2023-06-08] MEDS: NICOTINE 14 MG/24 HOURS TOPICAL PATCH TD SCH (09:33)
[2023-06-08] MEDS: FOLIC ACID 1 MG TABLET (FP) PO SCH (09:33)
[2023-06-08] MEDS: THIAMINE HCL 100 MG TABLET (FP) PO SCH (09:33)
[2023-06-08 09:45] LABS: BASO % 0.9 % (0-2.0); EOS % 4.3 % (0-4.5); HEMATOCRIT 38.7 % (35.4-49); HEMOGLOBIN 13.5 GM/dL (11.7-16.9); LYMPH % 49.4 % (8-40); MCH 32.6 pg (25.7-33.7); MCHC 34.9 g/dl (32.0-35.9); MEAN CELL VOLUME 93.3 fl (80-96); MONO % 8.1 % (3.8-10.2); NEUT % 37.3 % (42.8-82.8); PLATELET COUNT 316 10^3/uL (134-434); RBC 4.14 M/mm3 (4.00-5.60); RDW 13.9 % (11.9-15.9); WHITE BLOOD COUNT 5.2 K/mm3 (4.0-10.0)
[2023-06-08 10:19] LABS: POTASSIUM 4.5 mmol/L (3.5-5.1)
[2023-06-08 10:37] LABS: ALBUMIN 3.3 g/dl (3.4-5.0); CALCIUM 9.2 mg/dL (8.5-10.1); MAGNESIUM 2.3 mg/dL (1.8-2.4)
[2023-06-08 10:40] LABS: CREATININE 0.9 mg/dL (0.55-1.3)
[2023-06-08 10:41] LABS: BILIRUBIN,TOTAL 0.3 mg/dL (0.2-1); TOT PROT 8.7 g/dl (6.4-8.2)
[2023-06-08] MEDS: COLLAGENASE CLOSTRIDIUM HIST. 30 GRAMS TUBE TP SCH (20:14)
[2023-06-09] MEDS ORDERED: PIPERACILLIN/TAZOBACTAM 3.375 GM VIAL IVPB ONE (01:39)
[2023-06-09] MEDS: PIPERACILLIN/TAZOB 3.375 GM 3.375 GM in DEXTROSE 5%-WATER - 50 ML IVPB SCH ×3 (01:54→17:43)
[2023-06-09] MEDS: methaDONE 80 MG, methaDONE 20 MG PO SCH (05:49)
[2023-06-09 10:41] LABS: BASO % 0.7 % (0-2.0); EOS % 5.5 % (0-4.5); HEMATOCRIT 41.2 % (35.4-49); HEMOGLOBIN 13.9 GM/dL (11.7-16.9); LYMPH % 45.9 % (8-40); MCHC 33.8 g/dl (32.0-35.9); MEAN CELL VOLUME 94.7 fl (80-96); MEAN PLT VOLUME 8.3 fl (7.5-11.1); MONO % 6.6 % (3.8-10.2); NEUT % 41.3 % (42.8-82.8); PLATELET COUNT 370 10^3/uL (134-434); RBC 4.35 M/mm3 (4.00-5.60); RDW 13.6 % (11.9-15.9); WHITE BLOOD COUNT 5.1 K/mm3 (4.0-10.0)
[2023-06-09] MEDS: THIAMINE HCL 100 MG TABLET (FP) PO SCH (10:49)
[2023-06-09] MEDS: NICOTINE 14 MG/24 HOURS TOPICAL PATCH TD SCH (10:49)
[2023-06-09] MEDS: FOLIC ACID 1 MG TABLET (FP) PO SCH (10:49)
[2023-06-09] MEDS: COLLAGENASE CLOSTRIDIUM HIST. 30 GRAMS TUBE TP SCH (10:50)
[2023-06-09 11:10] LABS: POTASSIUM 4.6 mmol/L (3.5-5.1)
[2023-06-09 11:12] LABS: ALBUMIN 3.6 g/dl (3.4-5.0); CALCIUM 9.4 mg/dL (8.5-10.1); MAGNESIUM 2.3 mg/dL (1.8-2.4)
[2023-06-09 11:13] LABS: BLOOD UREA NITROGEN 18.4 mg/dL (7-18)
[2023-06-09 11:14] LABS: CREATININE 0.9 mg/dL (0.55-1.3)
[2023-06-09 11:17] LABS: BILIRUBIN,TOTAL 0.3 mg/dL (0.2-1); TOT PROT 9.7 g/dl (6.4-8.2)
[2023-06-10] MEDS: PIPERACILLIN/TAZOB 3.375 GM 3.375 GM in DEXTROSE 5%-WATER - 50 ML IVPB SCH ×3 (01:36→18:24)
[2023-06-10] MEDS: methaDONE 80 MG, methaDONE 20 MG PO SCH (06:46)
[2023-06-10 09:52] LABS: BASO % 0.6 % (0-2.0); EOS % 4.7 % (0-4.5); HEMATOCRIT 42.3 % (35.4-49); LYMPH % 50.2 % (8-40); MCH 31.9 pg (25.7-33.7); MCHC 33.2 g/dl (32.0-35.9); MONO % 6.5 % (3.8-10.2); PLATELET COUNT 341 10^3/uL (134-434); RBC 4.41 M/mm3 (4.00-5.60); RDW 13.1 % (11.9-15.9); WHITE BLOOD COUNT 5.1 K/mm3 (4.0-10.0)
[2023-06-10 10:09] LABS: POTASSIUM 4.5 mmol/L (3.5-5.1)
[2023-06-10 10:19] LABS: CALCIUM 9.1 mg/dL (8.5-10.1)
[2023-06-10 10:20] LABS: ALBUMIN 3.5 g/dl (3.4-5.0); MAGNESIUM 2.1 mg/dL (1.8-2.4)
[2023-06-10 10:22] LABS: CREATININE 0.8 mg/dL (0.55-1.3)
[2023-06-10 10:23] LABS: BILIRUBIN,TOTAL 0.6 mg/dL (0.2-1)
[2023-06-10 10:25] LABS: TOT PROT 9.4 g/dl (6.4-8.2)
[2023-06-10] MEDS: NICOTINE 14 MG/24 HOURS TOPICAL PATCH TD SCH (11:09)
[2023-06-10] MEDS: FOLIC ACID 1 MG TABLET (FP) PO SCH (11:09)
[2023-06-10] MEDS: THIAMINE HCL 100 MG TABLET (FP) PO SCH (11:10)
[2023-06-10] MEDS: COLLAGENASE CLOSTRIDIUM HIST. 30 GRAMS TUBE TP SCH (14:48)
[2023-06-11] MEDS: PIPERACILLIN/TAZOB 3.375 GM 3.375 GM in DEXTROSE 5%-WATER - 50 ML IVPB SCH ×2 (01:56→10:45)
[2023-06-11] MEDS: methaDONE 80 MG, methaDONE 20 MG PO SCH (05:18)
[2023-06-11] MEDS: COLLAGENASE CLOSTRIDIUM HIST. 30 GRAMS TUBE TP SCH (10:30)
[2023-06-11] MEDS: THIAMINE HCL 100 MG TABLET (FP) PO SCH (10:45)
[2023-06-11] MEDS: NICOTINE 14 MG/24 HOURS TOPICAL PATCH TD SCH (10:45)
[2023-06-11] MEDS: FOLIC ACID 1 MG TABLET (FP) PO SCH (10:45)
[2023-06-11] MEDS ORDERED: PIPERACILLIN/TAZOBACTAM 3.375 GM VIAL IVPB ONE (10:56)
[2023-06-11 11:02] LABS: BASO % 0.6 % (0-2.0); EOS % 3.5 % (0-4.5); HEMATOCRIT 38.4 % (35.4-49); HEMOGLOBIN 13.6 GM/dL (11.7-16.9); LYMPH % 52.8 % (8-40); MCH 32.8 pg (25.7-33.7); MCHC 35.3 g/dl (32.0-35.9); MEAN CELL VOLUME 92.9 fl (80-96); MEAN PLT VOLUME 8.3 fl (7.5-11.1); MONO % 7.7 % (3.8-10.2); NEUT % 35.4 % (42.8-82.8); PLATELET COUNT 336 10^3/uL (134-434); RBC 4.14 M/mm3 (4.00-5.60); WHITE BLOOD COUNT 4.6 K/mm3 (4.0-10.0)
[2023-06-11 11:26] LABS: POTASSIUM 4.2 mmol/L (3.5-5.1)
[2023-06-11 11:37] LABS: CREATININE 0.8 mg/dL (0.55-1.3)
[2023-06-11 11:40] LABS: ALBUMIN 3.4 g/dl (3.4-5.0); BLOOD UREA NITROGEN 15.1 mg/dL (7-18); CALCIUM 9.1 mg/dL (8.5-10.1); MAGNESIUM 2.1 mg/dL (1.8-2.4)
[2023-06-11 11:45] LABS: BILIRUBIN,TOTAL 0.3 mg/dL (0.2-1)
[2023-06-11 16:38] VITALS: BP 132/78; PULSE 75; RESP 20; TEMP 98.7
== END 2023-06-11 17:14 | disposition other institution (70) | DRG 383 ==
LOC: JER 14:09 → JERBED 18:12 → J8W 06-04 18:45
PROVIDERS: ADMIT Internal Medicine; ATTEND Nurse Practitioner Acute Care
DX: L03.116 Cellulitis of left lower limb (principal); L08.9 Local infection of the skin and subcutaneous tissue, unspecified; L97.528 Non-pressure chronic ulcer of other part of left foot with other specified severity; R00.1 Bradycardia, unspecified; S81.802A Unspecified open wound, left lower leg, initial encounter; F10.10 Alcohol abuse, uncomplicated; F11.90 Opioid use, unspecified, uncomplicated; F12.90 Cannabis use, unspecified, uncomplicated; F13.20 Sedative, hypnotic or anxiolytic dependence, uncomplicated; B19.20 Unspecified viral hepatitis C without hepatic coma; I35.1 Nonrheumatic aortic (valve) insufficiency; F41.8 Other specified anxiety disorders; F17.210 Nicotine dependence, cigarettes, uncomplicated; R94.31 Abnormal electrocardiogram [ECG] [EKG]; Z59.00 Homelessness unspecified
CPT/HCPCS: 36415; 73610-TC-LT-FY; 73630-TC-LT; 78315-TC; 80048; 80053; 83036; 83735; 84100; 85025; 85027; 85651; 86140; 87040; 93005; 93010; 93970-TC; 99285-25; A9503

== ENCOUNTER 2023-06-11 17:47 | Inpatient (IN) | payer OTHER ==
[2023-06-11 20:35] VITALS: BMI 22.5
[2023-06-11] MEDS ORDERED: METHOCARBAMOL 500 MG TABLET PO PRN (20:46)
[2023-06-11] MEDS ORDERED: POLYETHYLENE GLYCOL (HEALTHYLAX) 3350 17 GM PACKET PO PRN (20:46)
[2023-06-11] MEDS ORDERED: BENZONATATE 200 MG CAPSULE PO PRN (20:46)
[2023-06-11] MEDS ORDERED: BENZOCAINE/MENTHOL (CHLORASEPTIC ) LOZENGE MM PRN (20:46)
[2023-06-11] MEDS ORDERED: COLLOIDAL OATMEAL 1 BAR EACH TP PRN (20:46)
[2023-06-11] MEDS ORDERED: NALOXONE HCL 0.4 MG/ML VIAL IVPUSH PRN (20:46)
[2023-06-11] MEDS ORDERED: NALOXONE HCL (KLOXXADO) 8 MG SPRAY NS PRN (20:46)
[2023-06-11] MEDS ORDERED: MAG HYDROX/AL HYDROX/SIMETH 30 ML UNIT-DOSE CUP PO PRN (20:46)
[2023-06-11] MEDS ORDERED: guaiFENesin 600 MG TABLET.ER (FP) PO PRN (20:46)
[2023-06-11] MEDS ORDERED: hydrOXYzine PAMOATE 25 MG CAPSULE (FP) PO PRN (20:46)
[2023-06-11] MEDS ORDERED: IBUPROFEN 400 MG TABLET (FP) PO PRN (20:46)
[2023-06-11] MEDS ORDERED: LOPERAMIDE HCL 2 MG CAPSULE PO PRN (20:46)
[2023-06-11] MEDS ORDERED: MAGNESIUM HYDROX 2400MG/30ML ORAL SUSPENSION 30 ML CUP PO PRN (20:46)
[2023-06-11] MEDS: MELATONIN 5 MG TABLETS PO SCH (23:15)
[2023-06-11] MEDS: AMOX TR/POT CLAV 875MG/125MG TABLETS (FP) PO SCH (23:15)
[2023-06-11] MEDS: FOLIC ACID 1 MG TABLET (FP) PO SCH (23:15)
[2023-06-11] MEDS: COLLAGENASE CLOSTRIDIUM HIST. 30 GRAMS TUBE TP SCH (23:15)
[2023-06-12] MEDS ORDERED: methaDONE HCL 10 MG TABLET PO SCH (07:23)
[2023-06-12] MEDS: IBUPROFEN 600 MG TABLET (FP) PO PRN ×2 (07:36→21:07)
[2023-06-12] MEDS: methaDONE 80 MG, methaDONE 20 MG PO SCH (07:55)
[2023-06-12] MEDS: FOLIC ACID 1 MG TABLET (FP) PO SCH (09:31)
[2023-06-12] MEDS: PRENATAL VITAMINS W/ FOLIC ACID TABLET (FP) PO SCH (09:32)
[2023-06-12] MEDS: THIAMINE HCL 100 MG TABLET (FP) PO SCH (09:32)
[2023-06-12] MEDS: COLLAGENASE CLOSTRIDIUM HIST. 30 GRAMS TUBE TP SCH (09:32)
[2023-06-12] MEDS: AMOX TR/POT CLAV 875MG/125MG TABLETS (FP) PO SCH ×2 (09:32→21:07)
[2023-06-12] MEDS: NICOTINE 14 MG/24 HOURS TOPICAL PATCH TD SCH (09:32)
[2023-06-12] MEDS: MELATONIN 5 MG TABLETS PO SCH (21:07)
[2023-06-13] MEDS: methaDONE 80 MG, methaDONE 20 MG PO SCH (06:01)
[2023-06-13] MEDS: FOLIC ACID 1 MG TABLET (FP) PO SCH (09:48)
[2023-06-13] MEDS: AMOX TR/POT CLAV 875MG/125MG TABLETS (FP) PO SCH ×2 (09:48→21:08)
[2023-06-13] MEDS: NICOTINE 14 MG/24 HOURS TOPICAL PATCH TD SCH (09:48)
[2023-06-13] MEDS: THIAMINE HCL 100 MG TABLET (FP) PO SCH (09:48)
[2023-06-13] MEDS: COLLAGENASE CLOSTRIDIUM HIST. 30 GRAMS TUBE TP SCH (09:49)
[2023-06-13] MEDS: PRENATAL VITAMINS W/ FOLIC ACID TABLET (FP) PO SCH (09:49)
[2023-06-13] MEDS ORDERED: FLU VACCINE (FLULAVAL) PF 60 MCG/0.5 ML SYRINGE 2023-2024 IM ONE (12:00)
[2023-06-13] MEDS: MELATONIN 5 MG TABLETS PO SCH (21:08)
[2023-06-13] MEDS: ACETAMINOPHEN 325 MG TABLET (FP) PO PRN (21:10)
[2023-06-14] MEDS: methaDONE 80 MG, methaDONE 20 MG PO SCH (06:14)
[2023-06-14] MEDS: PRENATAL VITAMINS W/ FOLIC ACID TABLET (FP) PO SCH (09:57)
[2023-06-14] MEDS: NICOTINE 14 MG/24 HOURS TOPICAL PATCH TD SCH (09:57)
[2023-06-14] MEDS: THIAMINE HCL 100 MG TABLET (FP) PO SCH (09:57)
[2023-06-14] MEDS: COLLAGENASE CLOSTRIDIUM HIST. 30 GRAMS TUBE TP SCH (09:57)
[2023-06-14] MEDS: FOLIC ACID 1 MG TABLET (FP) PO SCH (09:57)
[2023-06-14] MEDS: AMOX TR/POT CLAV 875MG/125MG TABLETS (FP) PO SCH ×2 (09:57→21:14)
[2023-06-14] MEDS: MELATONIN 5 MG TABLETS PO SCH (21:14)
[2023-06-14] MEDS: ACETAMINOPHEN 325 MG TABLET (FP) PO PRN (21:14)
[2023-06-15] MEDS: methaDONE 80 MG, methaDONE 20 MG PO SCH (06:11)
[2023-06-15] MEDS: FOLIC ACID 1 MG TABLET (FP) PO SCH (09:53)
[2023-06-15] MEDS: AMOX TR/POT CLAV 875MG/125MG TABLETS (FP) PO SCH ×2 (09:53→21:18)
[2023-06-15] MEDS: THIAMINE HCL 100 MG TABLET (FP) PO SCH (09:53)
[2023-06-15] MEDS: NICOTINE 14 MG/24 HOURS TOPICAL PATCH TD SCH (09:54)
[2023-06-15] MEDS: PRENATAL VITAMINS W/ FOLIC ACID TABLET (FP) PO SCH (09:54)
[2023-06-15] MEDS: COLLAGENASE CLOSTRIDIUM HIST. 30 GRAMS TUBE TP SCH (09:55)
[2023-06-15] MEDS: IBUPROFEN 600 MG TABLET (FP) PO PRN (21:17)
[2023-06-15] MEDS: MELATONIN 5 MG TABLETS PO SCH (21:17)
[2023-06-16] MEDS: methaDONE 80 MG, methaDONE 20 MG PO SCH (06:13)
[2023-06-16] MEDS: FOLIC ACID 1 MG TABLET (FP) PO SCH (10:22)
[2023-06-16] MEDS: AMOX TR/POT CLAV 875MG/125MG TABLETS (FP) PO SCH ×2 (10:22→22:03)
[2023-06-16] MEDS: PRENATAL VITAMINS W/ FOLIC ACID TABLET (FP) PO SCH (10:22)
[2023-06-16] MEDS: THIAMINE HCL 100 MG TABLET (FP) PO SCH (10:22)
[2023-06-16] MEDS: NICOTINE 14 MG/24 HOURS TOPICAL PATCH TD SCH (10:23)
[2023-06-16] MEDS: MELATONIN 5 MG TABLETS PO SCH (21:42)
[2023-06-16] MEDS: ACETAMINOPHEN 325 MG TABLET (FP) PO PRN (21:43)
[2023-06-17] MEDS: methaDONE 80 MG, methaDONE 20 MG PO SCH (06:28)
[2023-06-17] MEDS: AMOX TR/POT CLAV 875MG/125MG TABLETS (FP) PO SCH ×2 (09:48→21:05)
[2023-06-17] MEDS: FOLIC ACID 1 MG TABLET (FP) PO SCH (09:48)
[2023-06-17] MEDS: THIAMINE HCL 100 MG TABLET (FP) PO SCH (09:48)
[2023-06-17] MEDS: PRENATAL VITAMINS W/ FOLIC ACID TABLET (FP) PO SCH (09:49)
[2023-06-17] MEDS: NICOTINE 14 MG/24 HOURS TOPICAL PATCH TD SCH (09:49)
[2023-06-17] MEDS: BACITRACIN 0.9 GM PACKET TP SCH ×2 (14:39→21:05)
[2023-06-17] MEDS: MELATONIN 5 MG TABLETS PO SCH (21:05)
[2023-06-17] MEDS: IBUPROFEN 600 MG TABLET (FP) PO PRN (21:07)
[2023-06-18] MEDS: methaDONE 80 MG, methaDONE 20 MG PO SCH (06:21)
[2023-06-18] MEDS: PRENATAL VITAMINS W/ FOLIC ACID TABLET (FP) PO SCH (10:05)
[2023-06-18] MEDS: NICOTINE 14 MG/24 HOURS TOPICAL PATCH TD SCH (10:05)
[2023-06-18] MEDS: FOLIC ACID 1 MG TABLET (FP) PO SCH (10:05)
[2023-06-18] MEDS: AMOX TR/POT CLAV 875MG/125MG TABLETS (FP) PO SCH ×2 (10:05→21:11)
[2023-06-18] MEDS: BACITRACIN 0.9 GM PACKET TP SCH ×2 (10:05→21:11)
[2023-06-18] MEDS: THIAMINE HCL 100 MG TABLET (FP) PO SCH (10:05)
[2023-06-18] MEDS: ACETAMINOPHEN 325 MG TABLET (FP) PO PRN (21:11)
[2023-06-18] MEDS: MELATONIN 5 MG TABLETS PO SCH (21:11)
[2023-06-19] MEDS: methaDONE 80 MG, methaDONE 20 MG PO SCH (06:08)
[2023-06-19] MEDS: PRENATAL VITAMINS W/ FOLIC ACID TABLET (FP) PO SCH (10:11)
[2023-06-19] MEDS: AMOX TR/POT CLAV 875MG/125MG TABLETS (FP) PO SCH ×2 (10:11→21:17)
[2023-06-19] MEDS: BACITRACIN 0.9 GM PACKET TP SCH ×2 (10:11→21:17)
[2023-06-19] MEDS: FOLIC ACID 1 MG TABLET (FP) PO SCH (10:11)
[2023-06-19] MEDS: NICOTINE 14 MG/24 HOURS TOPICAL PATCH TD SCH (10:11)
[2023-06-19] MEDS: COLLAGENASE CLOSTRIDIUM HIST. 30 GRAMS TUBE TP SCH (10:14)
[2023-06-19] MEDS: THIAMINE HCL 100 MG TABLET (FP) PO SCH (10:14)
[2023-06-19] MEDS: MELATONIN 5 MG TABLETS PO SCH (21:17)
[2023-06-19] MEDS: ACETAMINOPHEN 325 MG TABLET (FP) PO PRN (21:18)
[2023-06-20] MEDS: IBUPROFEN 600 MG TABLET (FP) PO PRN ×2 (00:56→21:27)
[2023-06-20] MEDS: methaDONE 80 MG, methaDONE 20 MG PO SCH (06:05)
[2023-06-20] MEDS: BACITRACIN 0.9 GM PACKET TP SCH ×2 (09:57→21:26)
[2023-06-20] MEDS: PRENATAL VITAMINS W/ FOLIC ACID TABLET (FP) PO SCH (09:57)
[2023-06-20] MEDS: NICOTINE 14 MG/24 HOURS TOPICAL PATCH TD SCH (09:57)
[2023-06-20] MEDS: THIAMINE HCL 100 MG TABLET (FP) PO SCH (09:57)
[2023-06-20] MEDS: AMOX TR/POT CLAV 875MG/125MG TABLETS (FP) PO SCH ×2 (09:57→21:26)
[2023-06-20] MEDS: FOLIC ACID 1 MG TABLET (FP) PO SCH (09:57)
[2023-06-20] MEDS: COLLAGENASE CLOSTRIDIUM HIST. 30 GRAMS TUBE TP SCH (09:58)
[2023-06-20] MEDS: MELATONIN 5 MG TABLETS PO SCH (21:26)
[2023-06-21] MEDS: methaDONE 80 MG, methaDONE 20 MG PO SCH (06:19)
[2023-06-21] MEDS: PRENATAL VITAMINS W/ FOLIC ACID TABLET (FP) PO SCH (09:57)
[2023-06-21] MEDS: THIAMINE HCL 100 MG TABLET (FP) PO SCH (09:57)
[2023-06-21] MEDS: AMOX TR/POT CLAV 875MG/125MG TABLETS (FP) PO SCH ×2 (09:57→21:22)
[2023-06-21] MEDS: FOLIC ACID 1 MG TABLET (FP) PO SCH (09:58)
[2023-06-21] MEDS: COLLAGENASE CLOSTRIDIUM HIST. 30 GRAMS TUBE TP SCH (09:58)
[2023-06-21] MEDS: BACITRACIN 0.9 GM PACKET TP SCH ×2 (09:58→21:22)
[2023-06-21] MEDS: NICOTINE 14 MG/24 HOURS TOPICAL PATCH TD SCH (09:58)
[2023-06-21] MEDS: IBUPROFEN 600 MG TABLET (FP) PO PRN (21:23)
[2023-06-21] MEDS: MELATONIN 5 MG TABLETS PO SCH (21:23)
[2023-06-22] MEDS: methaDONE 80 MG, methaDONE 20 MG PO SCH (06:17)
[2023-06-22 06:44] VITALS: RESP 16
[2023-06-22] MEDS: PRENATAL VITAMINS W/ FOLIC ACID TABLET (FP) PO SCH (09:58)
[2023-06-22] MEDS: AMOX TR/POT CLAV 875MG/125MG TABLETS (FP) PO SCH ×2 (09:58→21:04)
[2023-06-22] MEDS: BACITRACIN 0.9 GM PACKET TP SCH ×2 (09:58→21:04)
[2023-06-22] MEDS: THIAMINE HCL 100 MG TABLET (FP) PO SCH (09:58)
[2023-06-22] MEDS: FOLIC ACID 1 MG TABLET (FP) PO SCH (09:58)
[2023-06-22] MEDS: COLLAGENASE CLOSTRIDIUM HIST. 30 GRAMS TUBE TP SCH (10:00)
[2023-06-22] MEDS: NICOTINE 14 MG/24 HOURS TOPICAL PATCH TD SCH (10:11)
[2023-06-22] MEDS: MELATONIN 5 MG TABLETS PO SCH (21:04)
[2023-06-22] MEDS: IBUPROFEN 600 MG TABLET (FP) PO PRN (21:04)
[2023-06-23] MEDS: methaDONE 80 MG, methaDONE 20 MG PO SCH (06:16)
[2023-06-23] MEDS: AMOX TR/POT CLAV 875MG/125MG TABLETS (FP) PO SCH ×2 (09:44→21:06)
[2023-06-23] MEDS: NICOTINE 14 MG/24 HOURS TOPICAL PATCH TD SCH (09:44)
[2023-06-23] MEDS: BACITRACIN 0.9 GM PACKET TP SCH ×2 (09:44→21:06)
[2023-06-23] MEDS: FOLIC ACID 1 MG TABLET (FP) PO SCH (09:44)
[2023-06-23] MEDS: THIAMINE HCL 100 MG TABLET (FP) PO SCH (09:45)
[2023-06-23] MEDS: PRENATAL VITAMINS W/ FOLIC ACID TABLET (FP) PO SCH (09:45)
[2023-06-23] MEDS: MELATONIN 5 MG TABLETS PO SCH (21:06)
[2023-06-23] MEDS: IBUPROFEN 600 MG TABLET (FP) PO PRN (21:07)
[2023-06-24] MEDS: methaDONE 80 MG, methaDONE 20 MG PO SCH (06:02)
[2023-06-24] MEDS: FOLIC ACID 1 MG TABLET (FP) PO SCH (09:49)
[2023-06-24] MEDS: AMOX TR/POT CLAV 875MG/125MG TABLETS (FP) PO SCH ×2 (09:49→21:10)
[2023-06-24] MEDS: PRENATAL VITAMINS W/ FOLIC ACID TABLET (FP) PO SCH (09:49)
[2023-06-24] MEDS: BACITRACIN 0.9 GM PACKET TP SCH ×2 (09:49→21:10)
[2023-06-24] MEDS: THIAMINE HCL 100 MG TABLET (FP) PO SCH (09:49)
[2023-06-24] MEDS: NICOTINE 14 MG/24 HOURS TOPICAL PATCH TD SCH (09:50)
[2023-06-24] MEDS: MELATONIN 5 MG TABLETS PO SCH (21:10)
[2023-06-24] MEDS: IBUPROFEN 600 MG TABLET (FP) PO PRN (21:10)
[2023-06-25] MEDS: methaDONE 80 MG, methaDONE 20 MG PO SCH (06:16)
[2023-06-25 06:53] VITALS: BP 127/74; PULSE 48; TEMP 97.3
[2023-06-25] MEDS: AMOX TR/POT CLAV 875MG/125MG TABLETS (FP) PO SCH (09:03)
[2023-06-25] MEDS: NICOTINE 14 MG/24 HOURS TOPICAL PATCH TD SCH (09:04)
[2023-06-25] MEDS: BACITRACIN 0.9 GM PACKET TP SCH (09:04)
[2023-06-25] MEDS: THIAMINE HCL 100 MG TABLET (FP) PO SCH (09:04)
[2023-06-25] MEDS: FOLIC ACID 1 MG TABLET (FP) PO SCH (09:04)
[2023-06-25] MEDS: PRENATAL VITAMINS W/ FOLIC ACID TABLET (FP) PO SCH (09:04)
== END 2023-06-25 09:05 | disposition home or self-care (01) | DRG 772 ==
LOC: YASAS 17:47 → Y3W 22:27 → Y3E 22:37
PROVIDERS: ADMIT Allergy & Immunology; ATTEND Psychiatry & Neurology Pain Medicine
PROC: HZ42ZZZ Group Counseling for Substance Abuse Treatment, Cognitive-Behavioral (ICD-10-PCS; principal; 2023-06-11)
DX: F11.20 Opioid dependence, uncomplicated (principal); F10.20 Alcohol dependence, uncomplicated; F14.20 Cocaine dependence, uncomplicated; F17.210 Nicotine dependence, cigarettes, uncomplicated; L97.321 Non-pressure chronic ulcer of left ankle limited to breakdown of skin; L03.116 Cellulitis of left lower limb; Z86.19 Personal history of other infectious and parasitic diseases; Z28.310 Unvaccinated for COVID-19; Z28.9 Immunization not carried out for unspecified reason; Z88.8 Allergy status to other drugs, medicaments and biological substances
CPT/HCPCS: 87635; 90686; G0008

== ENCOUNTER 2024-07-26 22:09 | Inpatient (IN) | payer OTHER ==
[2024-07-26 23:07] VITALS: BMI 20.7
[2024-07-26] MEDS ORDERED: MAGNESIUM HYDROX 2400MG/30ML ORAL SUSPENSION 30 ML CUP PO PRN (23:29)
[2024-07-26] MEDS ORDERED: IBUPROFEN 400 MG TABLET (FP) PO PRN (23:29)
[2024-07-26] MEDS ORDERED: ACETAMINOPHEN 325 MG TABLET (FP) PO PRN (23:29)
[2024-07-26] MEDS ORDERED: NICOTINE POLACRILEX 4 MG GUM BUC PRN (23:29)
[2024-07-26] MEDS ORDERED: NALOXONE (NARCAN) HCL 4 MG/0.1 ML SPRAY NS PRN (23:29)
[2024-07-26] MEDS ORDERED: BENZOCAINE/MENTHOL (CHLORASEPTIC ) LOZENGE MM PRN (23:29)
[2024-07-26] MEDS ORDERED: BENZONATATE 200 MG CAPSULE PO PRN (23:29)
[2024-07-26] MEDS ORDERED: guaiFENesin 600 MG TABLET.ER (FP) PO PRN (23:29)
[2024-07-26] MEDS ORDERED: POLYETHYLENE GLYCOL (HEALTHYLAX) 3350 17 GM PACKET PO PRN (23:29)
[2024-07-27] MEDS: MELATONIN 5 MG TABLETS PO SCH (01:11)
[2024-07-27] MEDS ORDERED: methaDONE HCL 10 MG TABLET PO SCH (08:45)
[2024-07-27] MEDS: NICOTINE 21 MG/24 HOURS TOPICAL PATCH TD SCH (09:25)
[2024-07-27] MEDS: PRENATAL VITAMINS W/ FOLIC ACID TABLET (FP) PO SCH (09:25)
[2024-07-27] MEDS: COLLAGENASE CLOSTRIDIUM HIST. 30 GRAMS TUBE TP SCH (11:11)
[2024-07-27 11:39] LABS: PH,URINE 6.5 (5.0-8.0); URINE APPEARANCE CLEAR; URINE BILIRUBIN NEGATIVE (NEGATIVE); URINE COLOR DK YELLOW; URINE GLUCOSE (UA) NEGATIVE (NEGATIVE); URINE KETONE TRACE (NEGATIVE); URINE LEUK ESTERASE NEGATIVE (NEGATIVE); URINE NITRITE NEGATIVE (NEGATIVE); URINE PROTEIN TRACE (NEGATIVE)
[2024-07-27 11:51] LABS: HEMATOCRIT 29.1 % (35.4-49); HEMOGLOBIN 9.6 GM/dL (11.7-16.9); MCH 31.1 pg (25.7-33.7); MCHC 33.1 g/dl (32.0-35.9); MEAN CELL VOLUME 93.8 fl (80-96); MEAN PLT VOLUME 9.4 fl (7.5-11.1); PLATELET COUNT 211 10^3/uL (134-434); RDW 15.3 % (11.9-15.9); WHITE BLOOD COUNT 3.3 K/mm3 (4.0-10.0)
[2024-07-27 12:11] LABS: SYPHILIS W/ RPR CONF NON-REACTIVE (NONREACTIVE)
[2024-07-27 12:32] LABS: ALBUMIN 2.4 g/dl (3.4-5.0); CALCIUM 8.8 mg/dL (8.5-10.1); CHLORIDE 106 mmol/L (98-107); SODIUM 143 mmol/L (136-145)
[2024-07-27 12:33] LABS: ANION GAP 9 mmol/L (4-13); BLOOD UREA NITROGEN 11.2 mg/dL (7-18); CO2 28 mmol/L (21-32); GLUCOSE,RANDOM 88 mg/dL (74-106)
[2024-07-27 12:36] LABS: CREATININE 0.7 mg/dL (0.55-1.3); SGOT/AST 30 U/L (15-37); SGPT/ALT 20 U/L (13-61)
[2024-07-27 12:37] LABS: BILIRUBIN,TOTAL 0.2 mg/dL (0.2-1); TOT PROT 7.9 g/dl (6.4-8.2)
[2024-07-27 12:38] LABS: ALK PHOS 73 U/L (45-117)
[2024-07-27] MEDS: THIAMINE 100 MG TABLET PO SCH (21:05)
[2024-07-29] MEDS: MAG HYDROX/AL HYDROX/SIMETH 30 ML UNIT-DOSE CUP PO PRN (17:49)
[2024-07-29] MEDS: LOPERAMIDE HCL 2 MG CAPSULE PO PRN (23:39)
[2024-08-03] MEDS: AMMONIUM LACTATE 12% LOTION 225 GM BOTTLE TP PRN (11:43)
[2024-08-03] MEDS: IBUPROFEN 600 MG TABLET (FP) PO PRN (21:35)
[2024-08-05] MEDS: LIDOCAINE 4% PATCH TP SCH (13:53)
[2024-08-05] MEDS: LIDOCAINE PATCH REMOVAL MC SCH (21:29)
[2024-08-08 07:17] VITALS: RESP 16
[2024-08-08] MEDS: hydrOXYzine PAMOATE 25 MG CAPSULE (FP) PO PRN (21:21)
[2024-08-10 06:53] VITALS: BP 123/67; PULSE 72; TEMP 97.1
[2024-08-10] MEDS: NALOXONE (NYS OPIOID OVERDOSE PROGRAM) 4 MG/0.1 ML SPRAY NS PRN (09:46)
== END 2024-08-10 10:39 | disposition home or self-care (01) | DRG 772 ==
LOC: YASAS 22:09 → Y3W 23:37
PROVIDERS: ADMIT Psychiatry & Neurology Pain Medicine; ATTEND Psychiatry & Neurology Pain Medicine
PROC: HZ42ZZZ Group Counseling for Substance Abuse Treatment, Cognitive-Behavioral (ICD-10-PCS; principal; 2024-07-26)
DX: F11.20 Opioid dependence, uncomplicated (principal); F10.20 Alcohol dependence, uncomplicated; F14.20 Cocaine dependence, uncomplicated; F17.210 Nicotine dependence, cigarettes, uncomplicated; F41.8 Other specified anxiety disorders; F45.20 Hypochondriacal disorder, unspecified; S91.002D Unspecified open wound, left ankle, subsequent encounter; X58.XXXD Exposure to other specified factors, subsequent encounter; Z59.00 Homelessness unspecified
CPT/HCPCS: 36415; 80053; 80305; 80307; 81003; 85027; 86780; 86803; 87522; 87811; 93005; 93010

== ENCOUNTER 2024-11-07 14:51 | Inpatient (IN) | payer OTHER ==
[2024-11-07 15:52] VITALS: BMI 21.7
[2024-11-07] MEDS ORDERED: DICYCLOMINE HCL 10 MG CAPSULE PO PRN (16:00)
[2024-11-07] MEDS ORDERED: BENZOCAINE/MENTHOL (CHLORASEPTIC ) LOZENGE MM PRN (16:00)
[2024-11-07] MEDS ORDERED: ACETAMINOPHEN 325 MG TABLET (FP) PO PRN (16:00)
[2024-11-07] MEDS ORDERED: BISMUTH SUBSALICYLATE 524 MG/30 ML PO PRN (16:00)
[2024-11-07] MEDS ORDERED: hydrOXYzine PAMOATE 25 MG CAPSULE (FP) PO PRN (16:00)
[2024-11-07] MEDS ORDERED: NALOXONE (NARCAN) HCL 4 MG/0.1 ML SPRAY NS PRN (16:00)
[2024-11-07] MEDS ORDERED: POLYETHYLENE GLYCOL (HEALTHYLAX) 3350 17 GM PACKET PO PRN (16:00)
[2024-11-07] MEDS ORDERED: BENZONATATE 200 MG CAPSULE PO PRN (16:00)
[2024-11-07] MEDS ORDERED: guaiFENesin 600 MG TABLET.ER (FP) PO PRN (16:00)
[2024-11-07] MEDS ORDERED: MAGNESIUM HYDROX 2400MG/30ML ORAL SUSPENSION 30 ML CUP PO PRN (16:00)
[2024-11-07] MEDS ORDERED: MAG HYDROX/AL HYDROX/SIMETH 30 ML UNIT-DOSE CUP PO PRN (16:00)
[2024-11-07] MEDS ORDERED: NICOTINE POLACRILEX 4 MG GUM BUC PRN (16:00)
[2024-11-07] MEDS ORDERED: IBUPROFEN 600 MG TABLET (FP) PO PRN (16:00)
[2024-11-07] MEDS ORDERED: IBUPROFEN 400 MG TABLET (FP) PO PRN (16:00)
[2024-11-07] MEDS ORDERED: ONDANSETRON *ODT* 4 MG TABLET SL PRN (16:00)
[2024-11-07] MEDS ORDERED: LOPERAMIDE HCL 2 MG CAPSULE PO PRN (16:00)
[2024-11-07] MEDS: METHOCARBAMOL 500 MG TABLET PO PRN (22:54)
[2024-11-07] MEDS: THIAMINE 100 MG TABLET PO SCH (22:54)
[2024-11-07] MEDS: MELATONIN 5 MG TABLETS PO SCH (22:54)
[2024-11-08] MEDS ORDERED: methaDONE HCL 10 MG TABLET PO SCH (08:15)
[2024-11-08] MEDS: AMOX TR/POT CLAV 875MG/125MG TABLETS (FP) PO SCH (08:51)
[2024-11-08] MEDS: PRENATAL VITAMINS W/ FOLIC ACID TABLET (FP) PO SCH (10:34)
[2024-11-08] MEDS: diazePAM 5 MG TABLET PO SCH (10:35)
[2024-11-08] MEDS: NICOTINE 21 MG/24 HOURS TOPICAL PATCH TD SCH (10:36)
[2024-11-08] MEDS: LOSARTAN POTASSIUM 25 MG TABLET PO SCH (10:39)
[2024-11-08] MEDS: FLU VACCINE (FLULAVAL) PF 45 MCG/0.5 ML SYRINGE 2024-2025 IM ONE (11:08)
[2024-11-09] MEDS: diazePAM 5 MG TABLET PO SCH (06:33)
[2024-11-10] MEDS: diazePAM 5 MG TABLET PO SCH (05:24)
[2024-11-10 09:51] LABS: POTASSIUM 4.3 mmol/L (3.5-5.1)
[2024-11-10 10:05] LABS: HEMATOCRIT 33.3 % (35.4-49); MCH 30.8 pg (25.7-33.7); MCHC 32.9 g/dl (32.0-35.9); MEAN CELL VOLUME 93.4 fl (80-96); PLATELET COUNT 297 10^3/uL (134-434); RBC 3.57 M/mm3 (4.00-5.60); WHITE BLOOD COUNT 4.7 K/mm3 (4.0-10.0)
[2024-11-10 10:06] LABS: ALBUMIN 3.1 g/dl (3.4-5.0); BLOOD UREA NITROGEN 19.3 mg/dL (7-18); CALCIUM 9.1 mg/dL (8.5-10.1)
[2024-11-10 10:09] LABS: CREATININE 0.8 mg/dL (0.55-1.3)
[2024-11-10 10:10] LABS: BILIRUBIN,TOTAL 0.8 mg/dL (0.2-1); TOT PROT 8.3 g/dl (6.4-8.2)
[2024-11-10] MEDS: BACITRACIN 0.9 GM PACKET TP PRN (13:01)
[2024-11-10] MEDS: diazePAM 5 MG TABLET PO PRN (22:46)
[2024-11-11] MEDS: diazePAM 5 MG TABLET PO ONE (06:14)
[2024-11-11 11:15] VITALS: BP 109/59; PULSE 55; RESP 18; TEMP 98
== END 2024-11-11 10:00 | disposition home or self-care (01) | DRG 773 ==
LOC: YASAS 14:51 → Y6N 17:37
PROVIDERS: ADMIT Allergy & Immunology; ATTEND Allergy & Immunology
PROC: HZ2ZZZZ Detoxification Services for Substance Abuse Treatment (ICD-10-PCS; principal; 2024-11-07)
DX: F10.230 Alcohol dependence with withdrawal, uncomplicated (principal); F11.20 Opioid dependence, uncomplicated; F14.20 Cocaine dependence, uncomplicated; F13.20 Sedative, hypnotic or anxiolytic dependence, uncomplicated; F12.20 Cannabis dependence, uncomplicated; F17.210 Nicotine dependence, cigarettes, uncomplicated; F32.9 Major depressive disorder, single episode, unspecified; F41.8 Other specified anxiety disorders; F43.10 Post-traumatic stress disorder, unspecified; I10 Essential (primary) hypertension; R63.6 Underweight; Z68.21 Body mass index [BMI] 21.0-21.9, adult; Z59.00 Homelessness unspecified
CPT/HCPCS: 36415; 80053; 80305; 80307; 85027; 86780; 87070; 87186; 87205; 90656; 93005; 93010; G0008

== ENCOUNTER 2025-02-20 14:22 | Inpatient (IN) | payer OTHER ==
[2025-02-20 16:44] LABS: ABSOLUTE IMMATURE GRANULOCYTES 0.01 x10^3/uL (0.0-0.031); BASOPHILS # 0.01 x10^3/uL (0.01-0.08); HEMOGLOBIN 8.7 g/dL (13.7-17.5)
[2025-02-20 16:45] LABS: EOSINOPHIL % 3.4 % (0.8-7.0); EOSINOPHILS # 0.15 x10^3/uL (0.04-0.54); HEMATOCRIT 28.2 % (40.1-51.0); MCHC 30.9 g/dl (32.3-36.5); MEAN CELL VOLUME 94.9 fl (79.0-92.2); MEAN PLT VOLUME 12.1 fl (9.4-12.4); MONOCYTE # 0.54 x10^3/uL (0.30-0.82); MONOCYTE % 12.4 % (5.3-12.2); RDW 13.5 % (12.2-16.1)
[2025-02-20 16:46] LABS: PLATELET COUNT 70 x10^3/uL (163-337)
[2025-02-20 16:52] LABS: INR 1.13 (0.83-1.09); PROTHROMBIN TIME (PATIENT) 12.3 SEC (9.7-13.0)
[2025-02-20 16:55] LABS: ACTIVATED PTT 28.5 SECONDS (25.2-36.5)
[2025-02-20 17:11] LABS: CHLORIDE 102 mmol/L (98-107); POTASSIUM 3.9 mmol/L (3.5-5.1); SODIUM 137 mmol/L (136-145)
[2025-02-20 17:14] LABS: ALBUMIN 2.9 g/dl (3.4-5.0); ANION GAP 2 mmol/L (4-13); CO2 34 mmol/L (21-32); MAGNESIUM 2.1 mg/dL (1.8-2.4)
[2025-02-20 17:16] LABS: GLUCOSE,RANDOM 109 mg/dL (74-106)
[2025-02-20 17:17] LABS: CREATININE 0.9 mg/dL (0.55-1.3); PHOSPHOROUS 3.1 mg/dL (2.5-4.9); SGOT/AST 28 U/L (15-37)
[2025-02-20 17:18] LABS: BILIRUBIN,TOTAL 0.3 mg/dL (0.2-1)
[2025-02-20 17:19] LABS: TOT PROT 8.4 g/dl (6.4-8.2)
[2025-02-20 17:20] LABS: ALK PHOS 101 U/L (45-117); N-TERMINAL BNP 75.2 pg/ml (5-125)
[2025-02-20 17:22] LABS: SGPT/ALT 22 U/L (13-61)
[2025-02-20] MEDS ORDERED: VANCOMYCIN HCL 1,500 MG in DEXTROSE 5%-WATER - 500 ML IVPB ONE (17:26)
[2025-02-20 18:11] LABS: HIV INTERPRETATION NEGATIVE (NEGATIVE)
[2025-02-20] MEDS: LACTATED RINGERS SOLUTION 1000 ML INFUS.BAG IV ONE (18:11)
[2025-02-20 18:23] LABS: HCV DIAGNOSTIC IN-HOUSE W/RFLX REACTIVE (NONREACTIVE)
[2025-02-20] MEDS: VANCOMYCIN PREMIX 1.75 GM 1,750 MG/350 ML PIGGYBACK IVPB ONE (19:39)
[2025-02-20] MEDS ORDERED: VANCOMYCIN 1,000 MG in DEXTROSE 5%-WATER - 250 ML IVPB SCH (21:30)
[2025-02-20] MEDS ORDERED: KETOROLAC TROMETHAMINE 15 MG/ML VIAL ONE (22:01)
[2025-02-20] MEDS ORDERED: GABAPENTIN 300 MG CAPSULE ONE (22:01)
[2025-02-20] MEDS: KETOROLAC TROMETHAMINE 15 MG/ML VIAL IVPUSH ONE (22:07)
[2025-02-20] MEDS: GABAPENTIN 300 MG CAPSULE PO SCH (22:08)
[2025-02-20] MEDS: APIXABAN 5 MG TABLET PO SCH (22:08)
[2025-02-20] MEDS: SODIUM CHLORIDE 1,000 ML IV SCH (22:08)
[2025-02-20 22:22] LABS: URINE APPEARANCE CLEAR; URINE BILIRUBIN NEGATIVE (NEGATIVE); URINE COLOR YELLOW; URINE GLUCOSE (UA) NEGATIVE (NEGATIVE); URINE KETONE NEGATIVE (NEGATIVE); URINE LEUK ESTERASE NEGATIVE (NEGATIVE); URINE NITRITE NEGATIVE (NEGATIVE); URINE PROTEIN NEGATIVE (NEGATIVE); URINE UROBILINOGEN 4.0 E.U/dl mg/dL (0.2-1.0)
[2025-02-21] MEDS: methaDONE HCL 10 MG TABLET PO ONE (01:40)
[2025-02-21] MEDS: PIPERACILLIN/TAZOB 4.5 GM 4.5 GM in DEXTROSE 5%-WATER 100 ML IVPB SCH (03:11)
[2025-02-21] MEDS ORDERED: methaDONE HCL 10 MG TABLET PO SCH ×2 (06:00→10:00)
[2025-02-21 07:20] VITALS: BMI 22.0
[2025-02-21] MEDS: methaDONE HCL 40 MG DISPERSABLE TABLET PO ONE (08:01)
[2025-02-21] MEDS: LOSARTAN POTASSIUM 25 MG TABLET PO SCH (09:09)
[2025-02-21] MEDS ORDERED: ENOXAPARIN NA (PORCINE) 40 MG/0.4 ML DISP.SYRIN SQ SCH (10:00)
[2025-02-21] MEDS: VANCOMYCIN 1 GM PREMIX (F) 1 GM/200 ML BAG IVPB SCH ×2 (10:54→12:04)
[2025-02-21 11:20] LABS: HEMOGLOBIN 8.7 g/dL (13.7-17.5); RDW 13.7 % (12.2-16.1)
[2025-02-21 11:22] LABS: HEMATOCRIT 28.3 % (40.1-51.0); MCHC 30.7 g/dl (32.3-36.5); MEAN CELL VOLUME 95.3 fl (79.0-92.2)
[2025-02-21 11:32] LABS: INR 1.12 (0.83-1.09); PROTHROMBIN TIME (PATIENT) 12.3 SEC (9.7-13.0)
[2025-02-21 11:43] LABS: POTASSIUM 3.9 mmol/L (3.5-5.1)
[2025-02-21 11:51] LABS: ALBUMIN 2.4 g/dl (3.4-5.0); BLOOD UREA NITROGEN 9.1 mg/dL (7-18); CALCIUM 8.7 mg/dL (8.5-10.1)
[2025-02-21 11:54] LABS: CREATININE 0.7 mg/dL (0.55-1.3)
[2025-02-21 11:56] LABS: BILIRUBIN,TOTAL 0.2 mg/dL (0.2-1)
[2025-02-21] MEDS ORDERED: LORazepam 4 MG/1 ML VIAL IVPUSH PRN (16:28)
[2025-02-21] MEDS: PIPERACILLIN/TAZOB 3.375 GM 3.375 GM in DEXTROSE 5%-WATER - 50 ML IVPB SCH (17:45)
[2025-02-21 18:12] LABS: MEAN PLT VOLUME 12.9 fl (9.4-12.4); PLATELET COUNT 108 x10^3/uL (163-337); Reticulocyte % 1.57 % (0.51-1.81)
[2025-02-22] MEDS: PIPERACILLIN/TAZOB 4.5 GM 4.5 GM in DEXTROSE 5%-WATER 100 ML IVPB SCH (04:28)
[2025-02-22 08:38] LABS: ABSOLUTE IMMATURE GRANULOCYTES 0.01 x10^3/uL (0.0-0.031); BASOPHILS # 0.02 x10^3/uL (0.01-0.08); EOSINOPHIL % 4.4 % (0.8-7.0); EOSINOPHILS # 0.19 x10^3/uL (0.04-0.54); HEMATOCRIT 32.2 % (40.1-51.0); MCHC 31.1 g/dl (32.3-36.5); MEAN CELL VOLUME 95.3 fl (79.0-92.2); MONOCYTE # 0.45 x10^3/uL (0.30-0.82); MONOCYTE % 10.4 % (5.3-12.2); PLATELET COUNT 183 x10^3/uL (163-337); RDW 13.6 % (12.2-16.1)
[2025-02-22 09:01] LABS: POTASSIUM 4.3 mmol/L (3.5-5.1)
[2025-02-22 09:41] LABS: ALBUMIN 2.6 g/dl (3.4-5.0); BLOOD UREA NITROGEN 8.9 mg/dL (7-18)
[2025-02-22 09:44] LABS: CREATININE 0.8 mg/dL (0.55-1.3)
[2025-02-22 09:45] LABS: BILIRUBIN,TOTAL 0.2 mg/dL (0.2-1); TOT PROT 7.9 g/dl (6.4-8.2)
[2025-02-22] MEDS ORDERED: methaDONE HCL 10 MG TABLET PO SCH (10:00)
[2025-02-22] MEDS ORDERED: ENOXAPARIN NA (PORCINE) 60 MG/0.6 ML DISP.SYRIN SQ SCH (13:00)
[2025-02-22] MEDS ORDERED: ENOXAPARIN NA (PORCINE) 80 MG/0.8 ML DISP.SYRIN SQ SCH ×2 (15:00→16:00)
[2025-02-23] MEDS: COLLAGENASE CLOSTRIDIUM HIST. 30 GRAMS TUBE TP SCH (12:35)
[2025-02-24] MEDS: ACETAMINOPHEN 1000 MG/100 ML BAG IVPB PRN (00:45)
[2025-02-24] MEDS: DICYCLOMINE HCL 10 MG CAPSULE PO PRN (15:27)
[2025-02-24] MEDS ORDERED: HEPARIN NA (PORCINE) 5,000 UNITS/ML 1ML VIAL SQ SCH (22:00)
[2025-02-25 08:45] LABS: ABSOLUTE IMMATURE GRANULOCYTES 0.01 x10^3/uL (0.0-0.031); BASOPHILS # 0.05 x10^3/uL (0.01-0.08); EOSINOPHIL % 4.5 % (0.8-7.0); HEMATOCRIT 37.4 % (40.1-51.0); HEMOGLOBIN 11.5 g/dL (13.7-17.5); MCHC 30.7 g/dl (32.3-36.5); MEAN CELL VOLUME 95.4 fl (79.0-92.2); MEAN PLT VOLUME 10.9 fl (9.4-12.4); MONOCYTE # 0.39 x10^3/uL (0.30-0.82); MONOCYTE % 8.7 % (5.3-12.2); PLATELET COUNT 348 x10^3/uL (163-337); RDW 13.3 % (12.2-16.1)
[2025-02-25 09:05] LABS: POTASSIUM 4.1 mmol/L (3.5-5.1)
[2025-02-25 09:11] LABS: BLOOD UREA NITROGEN 10.8 mg/dL (7-18); CALCIUM 9.8 mg/dL (8.5-10.1)
[2025-02-25 09:12] LABS: ALBUMIN 3.1 g/dl (3.4-5.0)
[2025-02-25 09:15] LABS: CREATININE 0.9 mg/dL (0.55-1.3)
[2025-02-25 09:16] LABS: BILIRUBIN,TOTAL 0.3 mg/dL (0.2-1); TOT PROT 9.4 g/dl (6.4-8.2)
[2025-02-27 03:08] VITALS: RESP 18
[2025-02-28] MEDS: methaDONE HCL 10 MG TABLET PO ONE (10:42)
[2025-03-01] MEDS: APIXABAN 5 MG TABLET PO SCH (10:32)
[2025-03-01 19:08] LABS: Reticulocyte % 1.91 % (0.51-1.81)
[2025-03-01 21:06] LABS: OXYCODONE BLOOD Negative ng/mL (Cutoff:5); PCP BLOOD Negative ng/mL (Cutoff:8)
[2025-03-02 13:48] VITALS: BP 140/74; PULSE 63; TEMP 97.1
== END 2025-03-02 14:30 | disposition short-term general hospital (02) | DRG 344 ==
LOC: JER 14:22 → JERBED 17:54 → J6S 02-21 00:06
PROVIDERS: ADMIT Hospitalist; ATTEND Internal Medicine
DX: M86.172 Other acute osteomyelitis, left ankle and foot (principal); L03.114 Cellulitis of left upper limb; L03.113 Cellulitis of right upper limb; F17.210 Nicotine dependence, cigarettes, uncomplicated; D64.9 Anemia, unspecified; F11.20 Opioid dependence, uncomplicated; F10.20 Alcohol dependence, uncomplicated; Z59.00 Homelessness unspecified; L97.929 Non-pressure chronic ulcer of unspecified part of left lower leg with unspecified severity; D63.8 Anemia in other chronic diseases classified elsewhere; M65.88 Other synovitis and tenosynovitis, other site; D69.6 Thrombocytopenia, unspecified
CPT/HCPCS: 0241U-QW; 36415; 71045-TC-FY; 73110-TC-LT-FY; 73110-TC-RT-FY; 73130-TC-LT-FY; 73130-TC-RT-FY; 73590-TC-LT-FY; 73630-TC-LT; 73700-TC-RT; 73718-TC-LT; 80053; 80307; 81003; 82550; 82553; 82607; 82728; 82746; 83540; 83605; 83735; 83880; 84100; 84443; 84466; 84484; 85025; 85027; 85610; 85651; 85730; 86140; 86803; 86850; 86900; 86901; 87040; 87070; 87086; 87205; 87389; 87522; 93005; 93010; 93971-TC; 99285-25; G0480; J3370